=== PATIENT | female | born 1950 | race Caucasian/White ===

== ENCOUNTER 2024-08-22 23:34 | Inpatient (IN) | payer MEDICARE, SELFPAY ==
[2024-08-22 21:35] VITALS: BP 141/105; BMI 44.2
[2024-08-22 21:58] LABS: % Basophils 0.7 % (0-2); % Eosinophils 1.3 % (0-6); % Immature Granulocytes 0.4 % (0-0.5); % Lymphocytes 22.4 % (20.5-51.1); % Monocytes 8.5 % (1.7-9.3); % Neutrophils 66.7 % (42.2-75.2); Absolute Basophils 0.1 10^3/uL (0-0.2); Absolute Eosinophils 0.1 10^3/uL (0-0.7); Absolute Lymphocytes 1.7 10^3/uL (1.2-3.4); Absolute Monocytes 0.7 10^3/uL (0.1-0.6); Absolute Neutrophils 5.1 10^3/uL (1.4-6.5); Hematocrit 44.1 % (37.0-47.0); Hemoglobin 14.5 g/dL (12.0-16.0); Mean Corp Hgb Conc. 32.9 g/dL (33.0-37.0); Mean Corpuscular Hgb 30.8 pg (27.0-31.0); Mean Corpuscular Volume 93.6 fL (81.0-99.0); Mean Platelet Volume 11.1 fL (7.4-10.4); Nucleated Red Blood Cells % 0 %; Platelet Count 256 10^3/uL (130-400); Red Blood Cell Count 4.71 10^6/uL (4.20-5.40); Red Cell Dist. Width 14.6 % (11.5-14.5); White Blood Cell Count 7.7 10^3/uL (4.8-10.8)
[2024-08-22 22:00] VITALS: BP 142/103
[2024-08-22 22:12] LABS: ALT (SGPT) 27 U/L (0-35); AST (SGOT) 19 U/L (14-36); Albumin 4.4 g/dl (3.5-5.0); Alkaline Phosphatase 72 U/L (38-126); Blood Urea Nitrogen 16 mg/dl (7-17); Calcium 9.3 mg/dl (8.4-10.2); Carbon Dioxide 27 mmol/L (22-30); Chloride 105 mmol/L (98-107); Estimated Creatinine Clearance 85 ml/min; Glucose 124 mg/dl (70-99); Sodium 140 mmol/L (135-145); Total Bilirubin 1.3 mg/dl (0.2-1.3); Total Protein 6.8 g/dl (6.3-8.2); eGFR > 60.00
--- NOTE | 2024-08-22 22:17 | ED.GENMED ---
History of Present Illness
General
Chief Complaint: Cardiac Symptoms
Source: patient and physician (Urgent care physician)
Exam Limitations: none
Time Seen by Provider: 08/22/24 22:00
Nursing documentation reviewed up to this point in time: agreed with
History of Present Illness
History of Present Illness:
74-year-old female with past medical history of atrial fibrillation (not reportedly on a blood thinner), asthma, obesity who presents to the emergency department for evaluation of shortness of breath and weight gain. Patient follows with cardiology
through [place]. She says she was having shortness of breath and had a cardiac catheterization on Friday to evaluate for any blockages; she says that she was told that the cardiac catheterization was reassuring. She says that since having the
procedure however she has had increased weight gain�she says she is put on 20 pounds in the past 5 days. She has had increased swelling in the legs bilaterally. She says she is having increasing shortness of breath. She is having orthopnea. She
has a chronic cough unchanged. No fevers or chills. No chest pain. She says that tonight due to the symptoms she went to urgent care and was referred to the emergency room to be evaluated. I spoke with the urgent care physician who initially
assessed her�there she was found to be in A-fib with RVR and there was concern for CHF.
Review of Systems
Review of Systems
All Other Systems: ROS reviewed and negative except as documented in HPI and ROS
Constitutional: Reports weight gain; Denies fever or chills
Respiratory: Reports cough (Chronic unchanged) and trouble breathing
Cardiac: Denies chest pain
ABD/GI: Denies abdominal pain, nausea or vomiting
: Denies flank pain
Musculoskeletal: Reports edema; Denies neck pain or back pain
Neurological: Denies dizzy or headache
Phy Exam
Physical Exam
Physical Exam:
General: Awake, alert, oriented x3; no acute distress
Head: Normocephalic, atraumatic
Eyes: Conjunctiva normal
Throat: Airway intact, handling secretions
Neck: Trachea midline, +JVD noted
Lungs: Breath sounds diminished at the lung bases bilaterally; mild tachypnea, no hypoxia, no increased work of breathing
Heart: Tachycardia with irregularly irregular rhythm, no murmurs, gallops, or rubs appreciated
Neuro: No gross deficits
Skin: Chronic venous stasis changes in the legs
Extremities: Bilateral +3 edema in the legs; good pulses in all extremities
Scores
Heart Failure Risk
Heart Failure Risk Score: Yes
History of Stroke or TIA: No
History of intubation for respiratory distress: No
Heart rate on ED arrival >/= 110: Yes
SaO2 <90% on arrival on room air: No
HR >/=110 during 3min walk test (or too ill to perform test): Yes
ECG has acute ischemic changes: No
Urea >/=12mmol/L (BUN 33.6mg/dL): No
Serum CO2>/=35mmol/L: No
Troponin I or T elevated to MT Level (0.4mg/dL): No
NT-proBNP >/=5,000ng/L (5,000pg/ml): No
HF Risk Score: 2
Admission Status: MEDIUM RISK 9.2% Consider observation or discharge to home with homecare & f/u visit to PCP/Cutter Machine Tender, or SNF for treatment
Heart Score for Chest Pain Patients
STEMI patient?: Not applicable
Withdrawal Assessment of Alcohol
Withdrawal Assessment Completed?: Not applicable
Course
Orders/Labs/Results
Orders:
Orders
08/22/24 21:49
Electrocardiogram (*1) Urgent
Reason for Study: Chest Pain
EKG- Treatment ONCE
08/22/24 21:51
Complete Blood Count/With Diff Urgent
Comprehensive Metabolic Panel Urgent
Troponin I Urgent
08/22/24 22:16
CR Chest - 2 Views Urgent
Comment:
Reason For Exam: CHF--sob, LE swelling
08/22/24 22:17
Diltiazem HCl [Cardizem] 10 mg IV NOW STA
Furosemide [Lasix] 40 mg IV NOW STA
08/22/24 22:27
Free T4 Urgent
NT-proBNP Urgent
PTT Urgent
Prothrombin Time Urgent
TSH Reflex To Free T4 Urgent
Troponin I Urgent
08/22/24 23:27
Admit/Transfer Patient As Directed
Co-Sign Provider:
Level of Care: Inpatient admission
Assign to:: Telemetry
Physician / Group: marilyn
Diagnosis: chf exacerbation
Reason for Telemetry: Pulmonary Edema
Date to Stop Telemetry: 08/25/24
Time to Stop Telemetry: 11:00
Reason for Hospitalization: chf exacerbation
Expected length of stay greater than two midnights?: Yes
ELOS- Estimated Length of Stay in days: 2
I certify the patient meets the requirements for IP care: Yes
Code Status As Directed
Resuscitation Status: Full Code
PRN Pain Medication Management As Directed
May give lesser potent ordered pain med per pt: Yes
preference::
Protocol:: Medication orders for pain may be administered in a
manner that supports deferring to patient preference
when the pt is:
- Requesting an ordered lesser potent pain medication.
Least to most potent pain medications are defined
as: acetaminophen < NSAID < tramadol < opioids
(morphine, oxycodone, hydromorphone).
- Requesting a lesser dose of the same medication IF
ORDERED.
- Requesting a less intrusive route of administration
if both routes are prescribed by the provider (PO <
IV).
08/25/24 11:00
DC Protocol for Telemetry ONCE
Abnormal Lab Results
08/22/24 08/22/24
21:51 22:27
MCHC 32.9 L g/dL
(33.0-37.0)
RDW 14.6 H %
(11.5-14.5)
MPV 11.1 H fL
(7.4-10.4)
Absolute Monos (auto) 0.7 H 10^3/uL
(0.1-0.6)
Glucose 124 H mg/dl
(70-99)
Troponin I 0.127 H* ng/ml 0.130 H* ng/ml
TSH (Reflex) 5.13 H uIU/ml
(0.47-4.68)
08/22/24 21:51
08/22/24 21:51
Vital Signs
Initial and Last Documented VS:
Initial Vital Signs
Temp Pulse Resp BP Pulse Ox
36.6 C 113 20 141/105 95
08/22/24 21:35 08/22/24 21:35 08/22/24 21:35 08/22/24 21:35 08/22/24 21:35
Last Documented Vital Signs
Temp Pulse Resp BP Pulse Ox
36.6 C 96 20 126/87 97
08/22/24 21:35 08/23/24 00:45 08/23/24 00:45 08/23/24 00:30 08/23/24 00:45
MDM/Problems Addressed
Differential Diagnosis Includes:
CHF, pneumonia, symptomatic A-fib, PE less likely
MDM/Problems Addressed:
74-year-old female presents for evaluation of shortness of breath and weight gain, leg swelling. She arrives to us tachycardic and tachypneic, mildly hypertensive; no fever, no hypoxia. She has no increased work of breathing. Physical exam as
above�she does appear to be in congestive heart failure with marked leg edema, diminished breath sounds at the lung bases and JVD. Her EKG shows A-fib with RVR. Will plan to place an IV check labs including a CBC and a CMP, troponin, proBNP. Will
check chest x-ray. Will monitor closely reassess after the above. Anticipate admission.
Labs reviewed: CBC unremarkable, CMP no clinically significant abnormalities. Her troponin is elevated at 0.13 likely in the setting of demand with A-fib with RVR and congestive heart failure. Her proBNP is markedly elevated at 9000. Chest x-ray
shows cardiomegaly with prominent pulmonary vasculature and bilateral pleural effusions consistent with CHF. Given diltiazem for rate control, IV Lasix. Case discussed with hospitalist for admission.
Chronic conditions affecting care:
Obesity, A-fib
*Radiology
Radiology exam reviewed: preliminary read by ED provider and radiology read reviewed
*Pulse Oximetry
Patient hypoxic: no
*EKG
Interpreted by ED Provider?: Yes
Heart Rate: 115
Rate: tachycardiac
Rhythm: a-fib
Maurice: left axis deviation
Interval: normal interval
QRS Pattern: left vent hypertrophy
Ischemia: non-specific ST changes
*Critical Care Note
Total Time (30-74mins, 75-104mins- exclusive of procedures): Not Applicable
Data Reviewed
Source: patient, family and physician (Urgent care physician)
Patient Management
Discussion with other providers: Hospitalist (Discussed with hospitalist)
Escalation/DeEscalation of care consider admission/obs:
Admission indicated
ED Attending Note
-
Portions of this chart may have been created with voice recognition software.� Occasional wrong word or��sound alike� substitutions may have occurred due to the inherent limitations of voice recognition software.
Discharge Plan
Departure
Patient Disposition: Admit
Date of Disposition: 08/22/24
Time of Disposition: 23:12
Admit to doctor: Jose
Presentation/result/management discussed w/ accepting MD/DO: Hospitalist
Discharge Problem:
Atrial fibrillation with RVR, CHF (congestive heart failure)
Interventions
Interventions:
*Risk Screen - Suicide Last Done: 08/22/24 21:35
*General Assessment Last Done: 08/22/24 21:35
*Neglect/Abuse Screening Last Done: 08/22/24 21:35
*ED- Fall Risk Assessment Last Done: 08/22/24 21:35
ED- Pulmonary Assessment Last Done: 08/22/24 22:07
ED- Cardiac Assessment Last Done: 08/22/24 21:35
[2024-08-22] MEDS: CARDIZEM 10 MG IV (22:25)
[2024-08-22] MEDS: LASIX 40 MG IV (22:26)
[2024-08-22 22:28] LABS: Troponin I 0.127 ng/ml
[2024-08-22 22:34] VITALS: BP 123/107
[2024-08-22 22:46] VITALS: BP 116/86
[2024-08-22 22:51] LABS: INR 1.07; PT 14.2 Sec (11.4-14.6)
[2024-08-22 22:52] LABS: APTT 26.6 Sec (23.4-35.0)
[2024-08-22 23:08] LABS: NT-proBNP 9060 pg/ml
[2024-08-22 23:30] VITALS: BP 117/81
[2024-08-22 23:34] VITALS: BMI 44.2
[2024-08-22 23:34] LABS: TSH Reflex To Free T4 5.13 uIU/ml (0.47-4.68)
--- NOTE | 2024-08-22 23:34 | HPS.HSE ---
Family Physician
-
Family Physician: Gonzales Romo MD
Chief Complaint
-
shortness of breath
History of Present Illness
74-year-old female past medical history of atrial fibrillation, asthma, obesity, gout, chronic lymphedema presenting for shortness of breath and weight gain. Patient follows cardiology at [place]. She sees Dr. Coles.
She has had cardiac catheterization 5 days ago to evaluate her chronic lower extremity edema and to evaluate for 'skipped heart beat'. She did not have any CAD on catheterization but afterwards he developed increasing shortness of breath, 20 pound
weight gain and increased swelling in the legs bilaterally. Has chronic cough that is unchanged. No fevers or chills. No chest pain. She went to urgent care was told to come to emergency room. She was noted to be in A-fib with RVR there.
She recently had an echocardiogram in April that showed ejection fraction of 35%.
She denies smoking or alcohol use.
Medical History
Past Medical History
Past Medical History: Reports Other (atrial fibrillation, asthma, obesity, gout, chronic lymphedema)
Past Surgical History: Reports None
Social History
Tobacco: Non-smoker
Alcohol: None
Drug: None
Family History
Family History: Not pertinent
Allergies / Home Medications
Allergies reflects when Allergies were last updated in [employer].
Home Medications with original date entered in [employer]
Allergy/Medication List:
Allergies
Allergy/AdvReac Type Severity Reaction Status Date / Time
adhesive Allergy Rash Verified 08/22/24 21:48
levofloxacin (From Levaquin) Allergy Unknown Verified 08/22/24 22:35
pantoprazole Allergy Unknown Verified 08/22/24 22:35
pentazocine (From Talwin) Allergy Vomiting Verified 08/22/24 21:48
shark liver oil Allergy Anaphylaxis Verified 08/22/24 22:37
Home Medications
colchicine 0.6 mg tablet 0.6 mg PO DAILY 08/22/24
febuxostat 40 mg tablet 40 mg PO DAILY 08/22/24
Review of Systems
-
History Source: Patient
A 12 point ROS was completed and negative except as noted: Yes
Constitutional: Reports No Symptoms
EENT: Reports No Symptoms
Respiratory: Reports See HPI
Cardiac: Reports See HPI
Abdomen/GI: Reports No Symptoms
: Reports No Symptoms
Musculoskeletal: Reports No Symptoms
Skin: Reports No Symptoms
Neurological: Reports No Symptoms
Endocrine: Reports No Symptoms
Hematologic/Lymphatic: Reports No Symptoms
Psych: Reports No Symptoms
Physical Exam
Vital Signs
Vital Signs
Temp Pulse Resp BP Pulse Ox
97.8 F 78 16 123/107 98
08/22/24 21:35 08/22/24 23:00 08/22/24 23:00 08/22/24 22:34 08/22/24 23:00
Physical Exam
General: Well Developed, Well Nourished and No Apparent Distress
HEENT: NormoCephalic, Moist mucous membranes and Atraumatic
Respiratory: Clear
Cardiac: S1/S2, Regular Rhythm and Peripheral Edema; No Murmur or Rub
GI: Soft, Non Tender, Non Distended and Normal Bowel Sounds; No Organomegaly
Rectal: Deferred by Provider
Musculoskeletal: No Clubbing, No Cyanosis and No Edema
Skin: No Rash
Neuro: Nonfocal/grossly intact
Laboratory Results
-
08/22/24 21:51
08/22/24 21:51
Laboratory Results
PT 14.2 Sec (11.4-14.6) 08/22/24 22:27
INR 1.07 08/22/24 22:27
APTT 26.6 Sec (23.4-35.0) 08/22/24 22:27
Total Bilirubin 1.3 mg/dl (0.2-1.3) 08/22/24 21:51
AST 19 U/L (14-36) 08/22/24 21:51
ALT 27 U/L (0-35) 08/22/24 21:51
Alkaline Phosphatase 72 U/L (38-126) 08/22/24 21:51
Troponin I 0.130 ng/ml H* 08/22/24 22:27
Data Reviewed
-
Lab Data: Labs Reviewed by me
Old Records: Reviewed
Impression/Plan
-
IMPRESSION:
PLAN:
# Acute HFrEF exacerbation
- Cardiac BNP of 9000
-Chest x-ray shows borderline cardiomegaly, pulmonary vascularity, tiny bilateral pleural effusions
- Check I's and O's, daily weights
-Recent echo reportedly showed EF of 35%
- 40 IV Lasix daily
-Obtain records from [place] cardiology Dr. Coles
- Cardiology consulted
# Atrial fibrillation with RVR
- Cardizem bolus given now with heart rate 90s
- Check TSH
# Nonischemic myocardial injury secondary to A-fib and CHF
-No chest pain
- EKG shows atrial fibrillation with RVR with heart rate 115
- Troponin of 0.127
- Trend troponins
Childhood asthma
Obesity
Gout
- Continue colchicine, febuxostat
Chronic lymphedema
Full code
DVT prophylaxis�heparin
Cardiac diet
[2024-08-23] VITALS (21 sets, daily range): BP systolic 103–163; BP diastolic 67–104; BMI 42.2
[2024-08-23 00:10] LABS: Free T4 1.39 ng/dl (0.78-2.19)
[2024-08-23 02:10] LABS: Troponin I 0.113 ng/ml
[2024-08-23] MEDS: FLUSH (NSS) 1 FLUSH IV (02:38)
[2024-08-23 05:41] LABS: % Basophils 0.9 % (0-2); % Eosinophils 2.7 % (0-6); % Immature Granulocytes 0.3 % (0-0.5); % Lymphocytes 28.1 % (20.5-51.1); % Monocytes 11.4 % (1.7-9.3); % Neutrophils 56.6 % (42.2-75.2); Absolute Basophils 0.1 10^3/uL (0-0.2); Absolute Eosinophils 0.2 10^3/uL (0-0.7); Absolute Monocytes 0.8 10^3/uL (0.1-0.6); Hematocrit 39.6 % (37.0-47.0); Mean Corp Hgb Conc. 32.8 g/dL (33.0-37.0); Mean Corpuscular Hgb 30.7 pg (27.0-31.0); Mean Corpuscular Volume 93.6 fL (81.0-99.0); Mean Platelet Volume 10.4 fL (7.4-10.4); Nucleated Red Blood Cells % 0 %; Platelet Count 234 10^3/uL (130-400); Red Blood Cell Count 4.23 10^6/uL (4.20-5.40); Red Cell Dist. Width 14.5 % (11.5-14.5)
[2024-08-23 06:06] LABS: Blood Urea Nitrogen 15 mg/dl (7-17); Calcium 8.6 mg/dl (8.4-10.2); Carbon Dioxide 29 mmol/L (22-30); Chloride 105 mmol/L (98-107); Estimated Creatinine Clearance 75 ml/min; Glucose 121 mg/dl (70-99); Sodium 139 mmol/L (135-145); eGFR > 60.00
[2024-08-23 08:38] LABS: Troponin I 0.115 ng/ml
[2024-08-23] MEDS: LASIX 40 MG IV (09:40)
[2024-08-23] MEDS: COLCHICINE 0.6 MG PO (09:41)
--- NOTE | 2024-08-23 10:22 | CON.CAR ---
Addendum entered and electronically signed by Antonio Manning MD 08/23/24 13:34:
I saw and examined the patient.
The [employer] SAL[employer]IST's note was reviewed and I agree with the note.
Comment: 74-year-old patient with history of dilated cardiomyopathy with a EF of 30 to 35% on echo from March 2024, PAF, and lymphedema who usually follows with Dr. Coles at [facility]. She had a cardiac catheterization last
week that showed severely elevated filling pressures and non-obstructive CAD.'
Patient is concerned about medications and potential unwanted side effects; she is very sensitive to meds.
- IV diuresis
- start GDMT Entresto coreg
- pricing of DOAC
- echo
Original Note:
Consultation
Consultation Request
Date/Time Consultation Requested: 08/23/2024 0900
Date/Time Consultation Performed: 08/23/2024 0930
Requesting Provider: DR. Rubio
Performing Provider: Dr. Manning
Reason for Consultation: HFrEF, AF RVR
Medical History
-
Chief Complaint: SOB, weight gain, edema
History of Present Illness:
74-year-old patient with history of dilated cardiomyopathy with a EF of 30 to 35% on echo from March 2024, PAF, and lymphedema who usually follows with Dr. Coles at [facility]. She had a cardiac catheterization last week.
Results with nonobstructive disease. She states she has follow-up with Dr. Coles later this week. She states since that time she has had increased shortness of breath, lower extremity edema and weight gain. She believes that from her weight at
[facility] last week to wait now she is up approximately 20 pounds. She does not take diuretics at home. She states she only takes medications for her gout at home. Pt came to because she is considering changing cardiology care to here.
Past Medical History
Past Medical History: Arrhythmias (PAF), CAD (Nonobstructive disease), CHF (Heart failure reduced ejection fraction), Hypercholesterolemia and Other (gout, lymphedema)
Past Surgical History: None
Social History
Tobacco: Non-Smoker
Alcohol: Occasional
Living: Alone
Family History
Family History: Reviewed & Not Pertinent
Allergies / Home Medications
Allergy/AdvReac Type Severity Reaction Status Date / Time
adhesive Allergy Rash Verified 08/23/24 00:39
levofloxacin (From Levaquin) Allergy Unknown Verified 08/23/24 00:39
pantoprazole Allergy Unknown Verified 08/23/24 00:39
pentazocine (From Talwin) Allergy Vomiting Verified 08/23/24 00:39
shark liver oil Allergy Anaphylaxis Verified 08/23/24 00:39
�Medication �Instructions �Recorded �Confirmed �Type
colchicine 0.6 mg tablet 0.6 mg PO DAILY 08/22/24 08/22/24 History
febuxostat 40 mg tablet 40 mg PO DAILY 08/22/24 08/22/24 History
Review of Systems
-
History Source: Patient
Constitutional: Weight Gain
EENT: No Symptoms
Respiratory: Trouble Breathing
Cardiac: No Symptoms
Abdomen/GI: No Symptoms
: No Symptoms
Musculoskeletal: Edema (Increased bilateral lower extremity)
Neurological: No Symptoms
Endocrine: No Symptoms
Hematologic/Lymphatic: No Symptoms
Physical Exam
Vital Signs
Temp Pulse Resp BP Pulse Ox
97.7 F 78 18 163/92 95
08/23/24 08:22 08/23/24 08:22 08/23/24 08:22 08/23/24 08:22 08/23/24 08:22
Lab Results
08/23/24 05:29
08/23/24 05:29
Troponin I 0.115 ng/ml H* 08/23/24 08:00
Eoj-L-Zbyhsaozecy Pept 9060 pg/ml 08/22/24 22:27
Physical Exam
General: Well Developed, Well Nourished and No Apparent Distress
HEENT: Normocephalic and Moist Mucous Membranes
Respiratory: Clear (Decreased bases)
Cardiac: S1/S2, Irregular Rhythm and Peripheral Edema (Moderate to severe bilateral lower extremity edema)
Breast: Deferred by me
GI: Soft, Non Tender and Normal Bowel Sounds
Musculoskeletal: Edema (Moderate to severe bilateral lower extremity edema)
Skin: Other (R radial no hematoma, there is a palpable R radial pulse. )
Psych: Calm
Impression / Plan
-
Acute on chronic HFrEF:
-[facility] last week at [place]- non obstructive CAD.
-since procedure weight gain possible 20 pounds, increased SOB, and LE edema
-not on diuretics at home, not following fluid or sodium restrictions
-IV lasix here with some improvement. Con't to require IV lasix and monitoring.
-Reviewed GDMT and pt states she would like as little medication as possible.
-Reviewed need to fluid and sodium restrictions.
-echo from Dr. Coles/[facility]: 04/21/24 EF 30-35 with global hypokinesis ( seen brief on pt portal, reports requested).
-in past did not tolerate jardiance- felt poor on it, metoprolol had nausea and headache.
PAF:
-unknown duration.
-Pt denies history. Some mention of it in her pt portal.
-No mention of anticoagulation.
-CHADSVASC 4 (female,age,CHF, HTN- BP's elevated here). Denies any bleeding history.
-rates elevated prefer retrial of bblocker with HFrEF
-case management to check pricing of eliquis.
HTN:
-denies history.
-BP elevated at times here
- plan GDMT for HF and reassess BP
Non obstructive CAD:
- D1 20-30% stenosis on [facility] last week 08/17/24
- statin indicated but pt states her cholesterol level is normal and prefers natural treatments.
-troponin mildly abnormal . Peak 0.130, in setting of acute HFrEF and AF RVR. recent [facility] no obstructive CAD.
Chronic lymphedema:
- uses velcro wrap at home.
Data Reviewed
-
EKG: Tracing Personally Visualized and interpreted (Atrial fibrillation with RVR 115 bpm with LVH and nonspecific ST abnormality.)
Radiology: Report Reviewed by me (Chest x-ray 08/22/2024 borderline cardiomegaly with pulmonary vascularity tiny bilateral pleural effusions)
Medical Tests (Nuc Med, Echo etc): Report Reviewed by me ([facility]: 08/17/24 Radha: ANABELL patent. LAD: mild diffuse dz, D1: 20-30% focal ostial,D2 mild diffuse dz,LCX : mild luminal irreg, RCA: mild diffuse dz. Co 3.32L/min, CI 1.65L/min)
Labs: Labs Reviewed by me, Discussed with Physician and Discussed with Patient
Old Records: Requested (Records were requested from Dr. Coles's office as well as [facility]/ [facility])
--- NOTE | 2024-08-23 11:19 | W.PN.HOSP.TC ---
Today's Communication/Plan
-
see outlined plan
Assessment / Plan
Assessment / Plan
Assessment:
Acute on chronic HFrEF exacerbation
- BNP 9000
- CXR: Borderline cardiomegaly and pulmonary vascularity at least top normal.
- continue IV Lasix - requires intensive monitoring of I/Os, weights, lytes
- salt and fluid restrictions
- CHF education
- Recent echo reportedly showed EF 30-35% with global hypokinesis. Recent cath with mild nonobstructive CAD. Records pending from [facility] Dr. Coles
- CBC cards consulted
Atrial fibrillation with RVR
- s/p Cardizem
- continue Coreg
- CHADSVASC 4 (female,age,CHF, HTN- BP's elevated here). Denies any bleeding history. CM to cost [facility] Eliquis
Essential HTN
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
mild nonobstructive CAD
- No chest pain
- trop peaked .130
- continue Statin
Childhood asthma
Obesity
Gout
- continue colchicine, febuxostat
Chronic lymphedema
DVT prophylaxis : SC Heparin
Code: Full
Anticipated Discharge: > 48 hours
Subjective/Interval History
-
Date of Service: August 23, 2024
denies significant SOB or chest pain
no palpitations
Objective Data
-
Labs:
Laboratory Results
08/23/24
05:29
WBC 7.0
Hgb 13.0
Hct 39.6
Plt Count 234
Sodium 139
Potassium
Chloride 105
Carbon Dioxide 29
BUN 15
Creatinine 0.8
Glucose 121 H
Calcium 8.6
Total Bilirubin Cancelled
AST Cancelled
ALT Cancelled
Alkaline Phosphatase Cancelled
Vital Signs:
Vital Signs
Temp Pulse Resp BP Pulse Ox
97.7 F 78 18 163/92 95
08/23/24 08:22 08/23/24 08:22 08/23/24 08:22 08/23/24 08:22 08/23/24 08:22
Physical Exam
-
General: No Apparent Distress
HEENT: Normocephalic and Atraumatic
Respiratory: Crackles and Decreased Breath Sounds
Cardiac: Irregular Rhythm
GI: Soft and Nontender
Musculoskeletal: Edema, Right Lower Extrem and Edema, Left Lower Extrem
Neuro: AO x 3
Hematologic / Lymphatic: No Lymphadenopathy
Psych: Calm
Data Reviewed
-
Total Time Spent with Patient (in minutes): 51
Labs: Labs Reviewed by me
[2024-08-23] MEDS: COREG 3.125 MG PO ×2 (12:49→21:52)
[2024-08-23 13:59] LABS: Troponin I 0.092 ng/ml
[2024-08-23] MEDS: ULORIC PO (14:05)
--- NOTE | 2024-08-23 16:35 | CM ---
Alert awake oriented patient who lives with her Turner who lives in a one story home with 1 steps to enter.She is independent in driving and in all activities of daily living.Offered VN she declined.
No adaptive devices
Never had VN/SNF
Pharmacy [facility]
PCP Dr Romo
PLAN Home no needs
[2024-08-23 21:22] LABS: Troponin I 0.087 ng/ml
[2024-08-24 03:40] VITALS: BP 132/90
[2024-08-24 06:00] VITALS: BMI 42.0
[2024-08-24 07:35] VITALS: BP 112/63
[2024-08-24 07:43] LABS: Hematocrit 37.6 % (37.0-47.0); Hemoglobin 12.3 g/dL (12.0-16.0); Mean Corp Hgb Conc. 32.7 g/dL (33.0-37.0); Mean Corpuscular Hgb 30.9 pg (27.0-31.0); Mean Corpuscular Volume 94.5 fL (81.0-99.0); Mean Platelet Volume 10.8 fL (7.4-10.4); Platelet Count 225 10^3/uL (130-400); Red Blood Cell Count 3.98 10^6/uL (4.20-5.40); Red Cell Dist. Width 14.3 % (11.5-14.5); White Blood Cell Count 6.1 10^3/uL (4.8-10.8)
[2024-08-24 09:08] LABS: Blood Urea Nitrogen 18 mg/dl (7-17); Calcium 8.7 mg/dl (8.4-10.2); Carbon Dioxide 30 mmol/L (22-30); Chloride 103 mmol/L (98-107); Estimated Creatinine Clearance 64 ml/min; Glucose 110 mg/dl (70-99); Potassium 4.4 mmol/L (3.5-5.1); Sodium 139 mmol/L (135-145); eGFR > 60.00
--- NOTE | 2024-08-24 09:31 | W.PN.HOSP.TC ---
Today's Communication/Plan
-
continue IV Lasix
GMDT per Cardiology
Assessment / Plan
Assessment / Plan
Echo: Mildly dilated LV with severely reduced systolic function.
LVEF is 25-30% by visual estimation. Global diffuse hypokinesis.
Normal-appearing RV size with reduced systolic function.
No significant valvular disease.
Estimated pulmonary artery pressure of 29 mmHg assuming a right atrial pressure
of 3 mmHg.
No prior study available for comparison.
Assessment:
Acute on chronic HFrEF exacerbation
- BNP 9000
- CXR: Borderline cardiomegaly and pulmonary vascularity at least top normal.
- continue IV Lasix - requires intensive monitoring of I/Os, weights, lytes
- GDMT: ARB, BB. CM to [facility]
- salt and fluid restrictions
- CHF education
- Recent echo reportedly showed EF 30-35% with global hypokinesis. Recent cath with mild nonobstructive CAD. Records pending from [facility]iology Dr. Coles
- repeat Echo as above
- CBC cards following
- apply compression therapy - patient has own
Atrial fibrillation with RVR
- s/p Cardizem
- continue Coreg
- CHADSVASC 4 (female,age,CHF, HTN- BP's elevated here). Denies any bleeding history. CM to [employer]
Essential HTN
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
mild nonobstructive CAD
- No chest pain
- trop peaked .130
- continue Statin
Childhood asthma
Obesity
Gout
- continue colchicine, febuxostat
Chronic lymphedema
DVT prophylaxis: SC Heparin
Code: Full
Anticipated Discharge: > 48 hours
Subjective/Interval History
-
Date of Service: August 24, 2024
reports some lightheadedness and nausea for 3 hours after Coreg
denies any other complaints
weight down 5-7 lbs if scales accurate
Objective Data
-
Labs:
Laboratory Results
08/24/24
06:31
WBC 6.1
Hgb 12.3
Hct 37.6
Plt Count 225
Sodium 139
Potassium 4.4
Chloride 103
Carbon Dioxide 30
BUN 18 H
Creatinine 0.9
Glucose 110 H
Calcium 8.7
Vital Signs:
Vital Signs
Temp Pulse Resp BP Pulse Ox
98.7 F 86 18 112/63 96
08/24/24 07:35 08/24/24 07:35 08/24/24 07:35 08/24/24 07:35 08/24/24 07:35
I&O
08/23/24 08/24/24 08/25/24
06:59 06:59 06:59
Intake Total 960 / 960
Balance 960 / 960
Physical Exam
-
General: No Apparent Distress
HEENT: Normocephalic and Atraumatic
Respiratory: Negative Wheezes
Cardiac: S1/S2 and Irregular Rhythm
GI: Soft
Musculoskeletal: Edema, Right Lower Extrem and Edema, Left Lower Extrem
Neuro: AO x 3
Psych: Calm
Data Reviewed
-
Total Time Spent with Patient (in minutes): 51
Labs: Labs Reviewed by me
--- NOTE | 2024-08-24 10:07 | CM ---
notified med prices Eliquis $12.15, Xarelto $12.15, Dabigatran $4.90, Entresto $12.15.
Cardiology involved .
IV LAsix continues.
Fluid restriction maintained.
Offered V pt declined VN .
PLAN Home no needs
[2024-08-24] MEDS: DIOVAN PO (10:27)
[2024-08-24] MEDS: COLCHICINE 0.6 MG PO (10:30)
[2024-08-24] MEDS: COREG 3.125 MG PO ×2 (10:30→20:53)
[2024-08-24] MEDS: ULORIC 40 MG PO (10:30)
[2024-08-24] MEDS: LASIX 40 MG IV ×2 (10:30→18:12)
--- NOTE | 2024-08-24 10:39 | W.PN.CD ---
Today's Communication / Plan
-
IV diuresis
Slowly add meds for HFrEF and AFib
Patient education
More than 50 minutes spent caring for pt today
Impression / Plan
-
Acute on chronic HFrEF, LVEF here by echo 25-30%, goal weight not determined
Nonischemic dilated cardiomyopathy
Afib, persistent, duration unknown, rates still too fast
HTN suspected, not on meds for HTN
Non-obstructive CAD, max lesion at cath last week was a 20-30% D2
Chronic lymphedema (many years)=> but she has much more edema than is baseline
Med cost: Low cost per case management
Medication intolerance => I encourage her to stick with meds
Subjective: No CP or palpls
Physical Exam
Vital Signs/Labs
Vital Signs
Temp Pulse Resp BP Pulse Ox
98.7 F 86 18 112/63 96
08/24/24 07:35 08/24/24 07:35 08/24/24 07:35 08/24/24 07:35 08/24/24 07:35
08/23/24 08/24/24 08/25/24
06:59 06:59 06:59
Actual Weight 113.1 kg 107.592 kg
08/24/24 06:31
08/24/24 06:31
PT 14.2 Sec (11.4-14.6) 08/22/24 22:27
INR 1.07 08/22/24 22:27
APTT 26.6 Sec (23.4-35.0) 08/22/24 22:27
Magnesium 2.0 mg/dl (1.6-2.3) 08/24/24 06:31
Free T4 1.39 ng/dl (0.78-2.19) 08/22/24 22:27
08/22/24
22:27
Hch-S-Rbjimreiolo Pept 9060
LAB Results
08/22/24 08/22/24 08/23/24
21:51 22:27 01:33
Troponin I 0.127 H* 0.130 H* 0.113 H*
08/23/24 08/23/24 08/23/24
08:00 13:14 20:48
Troponin I 0.115 H* 0.092 H* 0.087 H*
Physical Exam
Constitutional: No acute distress
Cardiovascular: Rhythm/rate is irregular, Pedal edema present (3+ to knees) and S1S2 is normal
Respiratory: Respiratory effort normal and Lungs clear to auscul.
GI: Soft and Distention absent
Neuro/Psych: AO x 3
Data Reviewed
-
Date of Service: August 24, 2024
[2024-08-24 11:12] VITALS: BP 124/93
[2024-08-24 15:20] VITALS: BP 131/74
[2024-08-24 19:17] VITALS: BP 125/77
[2024-08-24] MEDS: ELIQUIS PO ×2 (20:53→20:55)
[2024-08-24 23:33] VITALS: BP 123/71
[2024-08-25 03:33] VITALS: BP 121/90
[2024-08-25 06:00] VITALS: BMI 41.9
[2024-08-25 06:32] LABS: Hematocrit 39.9 % (37.0-47.0); Hemoglobin 13.1 g/dL (12.0-16.0); Mean Corp Hgb Conc. 32.8 g/dL (33.0-37.0); Mean Corpuscular Volume 91.3 fL (81.0-99.0); Mean Platelet Volume 10.4 fL (7.4-10.4); Platelet Count 233 10^3/uL (130-400); Red Blood Cell Count 4.37 10^6/uL (4.20-5.40); White Blood Cell Count 6.9 10^3/uL (4.8-10.8)
[2024-08-25 07:00] LABS: Blood Urea Nitrogen 20 mg/dl (7-17); Carbon Dioxide 30 mmol/L (22-30); Chloride 101 mmol/L (98-107); Estimated Creatinine Clearance 64 ml/min; Glucose 126 mg/dl (70-99); Sodium 138 mmol/L (135-145); eGFR > 60.00
[2024-08-25 08:39] VITALS: BP 125/81
[2024-08-25] MEDS: LASIX 40 MG IV ×2 (09:11→16:34)
[2024-08-25] MEDS: ELIQUIS 5 MG PO ×2 (09:15→19:59)
[2024-08-25] MEDS: COLCHICINE PO (09:16)
[2024-08-25] MEDS: ULORIC PO (09:16)
[2024-08-25] MEDS: COREG PO (09:16)
--- NOTE | 2024-08-25 09:46 | W.PN.HOSP.TC ---
Today's Communication/Plan
-
continue IV Lasix now BID
GDMT: Coreg/ARB. patient requests ARB spaced out from Coreg to tease out any side effects given her history of side effects with BB and BP meds
Assessment / Plan
Assessment / Plan
Echo: Mildly dilated LV with severely reduced systolic function.
LVEF is 25-30% by visual estimation. Global diffuse hypokinesis.
Normal-appearing RV size with reduced systolic function.
No significant valvular disease.
Estimated pulmonary artery pressure of 29 mmHg assuming a right atrial pressure
of 3 mmHg.
No prior study available for comparison.
Assessment:
Acute on chronic HFrEF exacerbation
- BNP 9000
- CXR: Borderline cardiomegaly and pulmonary vascularity at least top normal.
- continue IV Lasix - requires intensive monitoring of I/Os, weights, lytes
- GDMT: ARB, BB. CM to [employer]
- salt and fluid restrictions
- CHF education
- Recent echo reportedly showed EF 30-35% with global hypokinesis. Recent cath with mild nonobstructive CAD. Records pending from OP Cardiology Dr. Coles
- repeat Echo as above
- CBC cards following
- apply compression therapy - patient has own
Atrial fibrillation with RVR
- s/p Cardizem
- continue Coreg
- CHADSVASC 4 (female,age,CHF, HTN- BP's elevated here). Denies any bleeding history. CM to [facility].by Eliquis
Essential HTN
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
mild nonobstructive CAD
- No chest pain
- trop peaked .130
- continue Statin
Childhood asthma
Obesity
Gout
- continue colchicine, febuxostat
Chronic lymphedema
DVT ppx: SC Heparin
Code: Full
Anticipated Discharge: > 48 hours
Subjective/Interval History
-
Date of Service: August 25, 2024
weight down 0.5 kg per scale
Objective Data
-
Labs:
Laboratory Results
08/25/24
06:13
WBC 6.9
Hgb 13.1
Hct 39.9
Plt Count 233
Sodium 138
Potassium 4.0
Chloride 101
Carbon Dioxide 30
BUN 20 H
Creatinine 0.9
Glucose 126 H
Calcium 9.0
Vital Signs:
Vital Signs
Temp Pulse Resp BP Pulse Ox
98 F 90 18 125/80 98
08/25/24 08:39 08/25/24 09:15 08/25/24 08:39 08/25/24 09:15 08/25/24 08:39
I&O
08/24/24 08/25/24 08/26/24
06:59 06:59 06:59
Intake Total 960 / 960 1200 / 1200
Balance 960 / 960 1200 / 1200
Physical Exam
-
General: No Apparent Distress
HEENT: Normocephalic and Atraumatic
Respiratory: Negative Wheezes
Cardiac: Regular Rhythm and S1/S2
GI: Soft
Musculoskeletal: Edema, Right Lower Extrem and Edema, Left Lower Extrem
Neuro: AO x 3
Psych: Calm
Data Reviewed
-
Total Time Spent with Patient (in minutes): 51
Labs: Labs Reviewed by me
[2024-08-25] MEDS: DIOVAN 80 MG PO (10:55)
--- NOTE | 2024-08-25 11:11 | W.PN.CD ---
Today's Communication / Plan
-
IV diuresis
May need Zaroxolyn tomorrow.
Slowly add GDMT
Impression / Plan
-
Acute on chronic HFrEF, LVEF here by echo 25-30%, goal weight not determined
- I reviewed GDMT: loop diuretic, BB, MRA, SGLT2-I, RAAS-I
- Admit weight 113 kg
- Today 08/25/2024: 107.2 kg but not much different than 08/24/2024
- If does not lose enough weight in next 24 hours will likely add Zaroxolyn for several days
Nonischemic dilated cardiomyopathy
NSVT, multiple episodes, longest 16 beats, monomorphic
- Med rx for HFrEF
- If EF stays low => will offer primary prevention ICD
Afib, persistent, duration unknown, rates still too fast
- Need a bit more rate control
- I reviewed the importance of OAT for stroke prevention
- Given HF will pursue rhythm control IF SHE demonstrates adherence to therapy and followup
HTN suspected, not on meds for HTN
Non-obstructive CAD, max lesion at cath last week was a 20-30% D2
Chronic lymphedema (many years)=> but she has much more edema than is baseline
Med cost: Low cost per case management
Medication intolerance => I encourage her to stick with meds
Subjective: No CP or palpls
Physical Exam
Vital Signs/Labs
Vital Signs
Temp Pulse Resp BP Pulse Ox
98 F 90 18 125/80 98
08/25/24 08:39 08/25/24 10:55 08/25/24 08:39 08/25/24 10:55 08/25/24 08:39
08/24/24 08/25/24 08/26/24
06:59 06:59 06:59
Actual Weight 107.592 kg 107.229 kg
08/25/24 06:13
08/25/24 06:13
PT 14.2 Sec (11.4-14.6) 08/22/24 22:27
INR 1.07 08/22/24 22:27
APTT 26.6 Sec (23.4-35.0) 08/22/24 22:27
Magnesium 2.0 mg/dl (1.6-2.3) 08/25/24 06:13
Free T4 1.39 ng/dl (0.78-2.19) 08/22/24 22:27
08/22/24
22:27
Srz-Y-Uyfcgsnnrgw Pept 9060
LAB Results
08/22/24 08/22/24 08/23/24
21:51 22:27 01:33
Troponin I 0.127 H* 0.130 H* 0.113 H*
08/23/24 08/23/24 08/23/24
08:00 13:14 20:48
Troponin I 0.115 H* 0.092 H* 0.087 H*
Physical Exam
Constitutional: No acute distress
Cardiovascular: Rhythm/rate is irregular and Pedal edema present (still 3+)
Respiratory: Respiratory effort normal and Lungs clear to auscul.
GI: Soft and Distention absent
Data Reviewed
-
Date of Service: August 25, 2024
[2024-08-25 11:36] VITALS: BP 103/57
[2024-08-25] MEDS: COREG 3.125 MG PO ×2 (12:07→20:45)
[2024-08-25] MEDS: COLCHICINE 0.6 MG PO (14:13)
[2024-08-25] MEDS: ULORIC 40 MG PO (14:14)
[2024-08-25 17:25] VITALS: BP 104/66
[2024-08-25 19:44] VITALS: BP 121/65
[2024-08-25 23:39] VITALS: BP 108/74
[2024-08-26 03:51] VITALS: BP 122/79
[2024-08-26 05:38] VITALS: BMI 41.2
[2024-08-26 06:22] LABS: Hematocrit 38.3 % (37.0-47.0); Hemoglobin 12.8 g/dL (12.0-16.0); Mean Corp Hgb Conc. 33.4 g/dL (33.0-37.0); Mean Corpuscular Hgb 30.4 pg (27.0-31.0); Mean Platelet Volume 10.4 fL (7.4-10.4); Platelet Count 225 10^3/uL (130-400); Red Blood Cell Count 4.21 10^6/uL (4.20-5.40); White Blood Cell Count 6.3 10^3/uL (4.8-10.8)
[2024-08-26 06:41] LABS: Blood Urea Nitrogen 20 mg/dl (7-17); Calcium 8.8 mg/dl (8.4-10.2); Carbon Dioxide 31 mmol/L (22-30); Chloride 101 mmol/L (98-107); Estimated Creatinine Clearance 57 ml/min; Glucose 121 mg/dl (70-99); Magnesium 2.2 mg/dl (1.6-2.3); Sodium 139 mmol/L (135-145); eGFR 59.12
[2024-08-26 08:01] VITALS: BP 134/80
--- NOTE | 2024-08-26 09:54 | W.PN.CD ---
Today's Communication / Plan
-
Respiratory status appears stable. Patient's weight is down another 2 kg compared to yesterday. Still with bilateral lower extremity edema. She has a component of chronic lymphedema.
Patient states that she is going home today. I will suggest that she still gets additional IV diuretic and optimization of medical therapy while she is here. We did review medications and and I discussed the importance of medications including
anticoagulation. As listed below we will be sure that she is going to be compliant with medical therapy prior to going with rhythm control strategy.
If patient is insistent on going home then will need to pick a diuretic dose would recommend Lasix 40 mg a day. This is in addition to current dosing of valsartan carvedilol and apixaban and Farxiga. Not using spironolactone until we are clear
that on patient's follow-up and compliance.
Patient will labs/renal profile once a week for the next 2 weeks at the time of discharge
Impression / Plan
-
Acute on chronic HFrEF, LVEF here by echo 25-30%, goal weight not determined
- I reviewed GDMT: loop diuretic, BB, MRA, SGLT2-I, RAAS-I
- Admit weight 113 kg now down to 105
- On yesterday's evaluation there was consideration of using metolazone if patient did not diurese but now appears to be another 2 kg down.
- Patient still with significant edema. She has a component of chronic edema/lymphedema but would continue with IV diuretic.
Nonischemic dilated cardiomyopathy. Continue to optimize GDMT
NSVT, multiple episodes, longest 16 beats, monomorphic. Ventricular triplets over the last 24 hours no longer runs
- Med rx for HFrEF
- If EF stays low => will offer primary prevention ICD. Reassess meant of EF in 3 months
Afib, persistent, duration unknown,
- Heart rate approximately 100 may benefit from some additional rate control provided BP will allow.
- I reviewed the importance of OAT for stroke prevention
- Given HF will pursue rhythm control IF SHE demonstrates adherence to therapy and followup
HTN suspected, not on meds for HTN
Non-obstructive CAD, max lesion at cath last week was a 20-30% D2
Chronic lymphedema (many years)=> but she has much more edema than is baseline
Med cost: Low cost per case management
Medication intolerance => I encourage her to stick with meds
Subjective: No CP or shortness of breath.'s patient states that she is going home today
Physical Exam
Vital Signs/Labs
Vital Signs
Temp Pulse Resp BP Pulse Ox
98.2 F 71 18 134/80 94
08/26/24 08:01 08/26/24 08:01 08/26/24 08:01 08/26/24 08:01 08/26/24 08:01
08/25/24 08/26/24 08/27/24
06:59 06:59 06:59
Actual Weight 107.229 kg 105.375 kg
08/26/24 06:01
08/26/24 06:01
PT 14.2 Sec (11.4-14.6) 08/22/24 22:27
INR 1.07 08/22/24 22:27
APTT 26.6 Sec (23.4-35.0) 08/22/24 22:27
Magnesium 2.2 mg/dl (1.6-2.3) 08/26/24 06:01
Free T4 1.39 ng/dl (0.78-2.19) 08/22/24 22:27
08/22/24
22:27
Zox-M-Ehrrfhnhdbn Pept 9060
LAB Results
08/23/24 08/23/24
13:14 20:48
Troponin I 0.092 H* 0.087 H*
Physical Exam
Constitutional: No acute distress
Cardiovascular: Rhythm/rate is irregular
Respiratory: Wheeze Absent and Rhonchi Absent
GI: Soft and Non tender
Neuro/Psych: Alert
Other: Other (Some chronic skin changes in lower extremities patient with bilateral edema. Note patient reported to have component of chronic edema/lymphedema)
Data Reviewed
-
Date of Service: August 26, 2024
Medical Decision Making: Reviewed Test Results
Echo: Report Reviewed by me
Medical Tests (PFT, Pathology etc): Report Reviewed by me
Labs: Labs Reviewed by me
[2024-08-26] MEDS: ELIQUIS 5 MG PO (10:04)
[2024-08-26] MEDS: LASIX 40 MG IV (10:06)
[2024-08-26] MEDS: FLUSH (NSS) 2 FLUSH IV (10:07)
--- NOTE | 2024-08-26 11:10 | W.PN.HOSP.TC ---
Today's Communication/Plan
-
Patient signing out AMA - recommended to stay and continue IV diuretics
Meds/labs/instructions/fu reviewed and meds sent to pharmacy.
Assessment / Plan
Assessment / Plan
Echo: Mildly dilated LV with severely reduced systolic function.
LVEF is 25-30% by visual estimation. Global diffuse hypokinesis.
Normal-appearing RV size with reduced systolic function.
No significant valvular disease.
Estimated pulmonary artery pressure of 29 mmHg assuming a right atrial pressure
of 3 mmHg.
No prior study available for comparison.
Assessment:
Acute on chronic HFrEF exacerbation
- BNP 9000
- CXR: Borderline cardiomegaly and pulmonary vascularity at least top normal.
- continue IV Lasix - requires intensive monitoring of I/Os, weights, lytes.
- patient wants to leave despite advice to continue in hospital treatment. AMA form signed.
- GDMT: ARB, BB. Fargixa
- salt and fluid restrictions
- CHF education
- Recent echo reportedly showed EF 30-35% with global hypokinesis. Recent cath with mild nonobstructive CAD. Records pending from OP Cardiology Dr. Coles
- repeat Echo as above
- CBC cards follow up outpatient.
- labs weekly x 2 weeks
- apply compression therapy - patient has own
Atrial fibrillation with RVR
- s/p Cardizem
- continue Coreg
- CHADSVASC 4 (female,age,CHF, HTN- BP's elevated here). Denies any bleeding history. Eliquis
Essential HTN
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
mild nonobstructive CAD
- No chest pain
- trop peaked .130
- continue Statin
Childhood asthma
Obesity
Gout
- continue colchicine, febuxostat
Chronic lymphedema
DVT ppx: Eliquis
Code: Full
More than 30 minutes spent in discharge including
Final examination of the patient
Summarizing hospital stay
Instructions for continuing care to all relevant caregivers
Preparation of discharge records, prescriptions, and referral forms
Total time spent (in minutes): 51
Anticipated Discharge: Today
Subjective/Interval History
-
Date of Service: August 26, 2024
resting comfortably, no CP or SOB
Objective Data
-
Labs:
Laboratory Results
08/26/24
06:01
WBC 6.3
Hgb 12.8
Hct 38.3
Plt Count 225
Sodium 139
Potassium 4.0
Chloride 101
Carbon Dioxide 31 H
BUN 20 H
Creatinine 1.0
Glucose 121 H
Calcium 8.8
Vital Signs:
Vital Signs
Temp Pulse Resp BP Pulse Ox
98.2 F 71 18 134/80 94
08/26/24 08:01 08/26/24 10:06 08/26/24 08:01 08/26/24 10:06 08/26/24 08:01
I&O
08/25/24 08/26/24 08/27/24
06:59 06:59 06:59
Intake Total 1200 / 1200 480 / 480
Balance 1200 / 1200 480 / 480
Physical Exam
-
General: No Apparent Distress
HEENT: Normocephalic and Atraumatic
Respiratory: Negative Wheezes
Cardiac: Regular Rhythm and S1/S2
GI: Soft
Musculoskeletal: Edema, Right Lower Extrem and Edema, Left Lower Extrem
Neuro: AO x 3
Psych: Calm
Data Reviewed
-
Total Time Spent with Patient (in minutes): 51
Labs: Labs Reviewed by me
--- NOTE | 2024-08-26 11:35 | W.DS.TRANS ---
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
-
Discharge Instructions:
Discharge Diagnosis/Procedures acute CHF, cardiomyopathy, A. Fib
Diet 2 Gram Sodium,Restrict fluids to 48 oz
Activity As tolerated
Blood Work BMP in 1 week and 2 week
Instructions:
Stand-Alone Forms:
Changes to Home Medications: No
Discharge Medications:
DC Medications w/original date entered in [employer]
colchicine 0.6 mg tablet 0.6 mg PO DAILY 08/22/24
febuxostat 40 mg tablet 40 mg PO DAILY 08/22/24
apixaban 5 mg tablet (Eliquis) 5 mg PO BID #60 tabs 08/26/24
carvedilol 3.125 mg tablet 3.125 mg PO BID #60 tabs 08/26/24
dapagliflozin propanediol 10 mg tablet 10 mg PO DAILY #30 tabs 08/26/24
furosemide 40 mg tablet (Lasix) 40 mg PO DAILY #30 tabs 08/26/24
valsartan 80 mg tablet 80 mg PO DAILY@1200 #30 tabs 08/26/24
Home Medication Changes
Pending Results: No
Total time spent discharging patient (in min): 41
[2024-08-26] MEDS: COREG 3.125 MG PO (12:05)
--- NOTE | 2024-08-26 12:16 | CM ---
Chart reviewed and patient is for discharge to home today, cost of Eliquis reviewed with pharmacy again and cost is $529.24, cost of Farxiga is $98 per month, 30 day free coupons provided to patient, plan is to home today IMM completed. No needs art
discharge.
Plan; Home today no needs.
[2024-08-26 12:44] VITALS: BP 114/77
--- NOTE | 2024-08-26 14:30 | PTCARENOTE ---
Pt planning on leaving AMA, paperwork signed with Dr. Rubio. Pt wanted to take Diovan prior to leaving. BP 97/60 prior to administrating Diovan, parameters to hold if SBP < 100. Pt asymptomatic, held Diovan. Pt's expressing that he doesn't
want pt to leave with these new medications and her BP being a little low. Pt made RN aware that she is going to stay tonight. Updated Dr. Rubio.
--- NOTE | 2024-08-26 15:09 | W.PN.UPDATE ---
Update Note
Progress Note Update
patient with borderline low BP of 109-59. concerned over BP and recent introduction of CHF meds. She will rescrind AMA discharge and stay tonight. Hold PM IV Lasix and resume as PO Lasix tomorrow. If BP stable tomorrow, patient can discharge
tomorrow.
[2024-08-26 15:26] VITALS: BP 109/59
[2024-08-26] MEDS: ULORIC 40 MG PO (15:29)
[2024-08-26] MEDS: COLCHICINE 0.6 MG PO (15:29)
--- NOTE | 2024-08-26 15:30 | PTCARENOTE ---
Pt states that her last BM was Friday (08/22). Pt does not feel constipated and says she probably will not go while in the hospital, offered to get a stool softener order for her but she refused.
[2024-08-26] MEDS: FARXIGA 10 MG PO (18:04)
[2024-08-26 20:49] VITALS: BP 102/62
--- NOTE | 2024-08-26 21:00 | PTCARENOTE ---
Pt declined coreg and eliquis tonight. With BP being soft at 102/62 on the cusp of the parameters, I agreed with holding coreg. Provided education on eliquis, including risk for heart attack and stroke due to AFib. Pt still declined eliquis. Pt
expressed frustration with having 'so many medications thrown at me at once without explanation' and would like to have a more detailed conversation with her PCP outpatient.
[2024-08-26] MEDS: COREG PO (21:06)
[2024-08-26] MEDS: ELIQUIS PO (21:06)
[2024-08-26 23:37] VITALS: BP 117/71
[2024-08-27 05:38] VITALS: BMI 40.6
[2024-08-27 07:50] VITALS: BP 140/92
[2024-08-27] MEDS: LASIX 40 MG PO (08:15)
--- NOTE | 2024-08-27 08:19 | W.PN.CD ---
Today's Communication / Plan
-
Need CM to go over pricing of DOACs and SGLT2i to see what is affordable
Cont coreg and valsartan
Furosemide to go to 40 mg daily
She is adamant on going home; we will arrange follow up.
She will need a BMP in a week
Impression / Plan
-
Acute on chronic HFrEF, LVEF here by echo 25-30%, goal weight not determined
- I reviewed GDMT: loop diuretic, BB, MRA, SGLT2-I, RAAS-I
- Admit weight continues to come down adamant on leaving today
- GDMT: Coreg, unable to afford Farxiga/Jardiance, Valsartan, add spironolactone later
- Patient still with
Nonischemic dilated cardiomyopathy. Continue to optimize GDMT
NSVT, multiple episodes, longest 16 beats, monomorphic. Ventricular triplets over the last 24 hours no longer runs
- Med rx for HFrEF
- If EF stays low => will offer primary prevention ICD. Reassess meant of EF in 3 months
Afib, persistent, duration unknown,
- Heart rate approximately 100 may benefit from some additional rate control provided BP will allow.
- I reviewed the importance of OAT for stroke prevention
- Given HF will pursue rhythm control IF SHE demonstrates adherence to therapy and followup
- According to case management DOACs should be affordable but this AM she told me it was $500 for Eliquis, in CM note it was $12.15
HTN suspected, not on meds for HTN
Non-obstructive CAD, max lesion at cath last week was a 20-30% D2
Chronic lymphedema (many years)=> but she has much more edema than is baseline
Med cost: Low cost per case management
Medication intolerance => I encourage her to stick with meds
Subjective: Feeling improved said she is going home
Physical Exam
Vital Signs/Labs
Vital Signs
Temp Pulse Resp BP Pulse Ox
98.2 F 76 18 140/92 100
08/26/24 23:37 08/27/24 08:15 08/26/24 23:37 08/27/24 08:15 08/27/24 08:08
08/26/24 08/27/24 08/28/24
06:59 06:59 06:59
Actual Weight 232 lb 5 oz 229 lb 3 oz
08/26/24 06:01
08/26/24 06:01
PT 14.2 Sec (11.4-14.6) 08/22/24 22:27
INR 1.07 08/22/24 22:27
APTT 26.6 Sec (23.4-35.0) 08/22/24 22:27
Magnesium 2.2 mg/dl (1.6-2.3) 08/26/24 06:01
Free T4 1.39 ng/dl (0.78-2.19) 08/22/24 22:27
08/22/24
22:27
Pbl-N-Reirbzuveby Pept 9060
Physical Exam
Constitutional: No acute distress and Comfortable
EENT: Anicteric
Cardiovascular: Rhythm/rate is irregular and Pedal edema present
Respiratory: Respiratory effort normal
GI: Soft
Neuro/Psych: Alert and Oriented
Data Reviewed
-
Date of Service: August 27, 2024
EKG: Tracing Personally Visualized and interpreted (af)
Echo: Tracing Personally Visualized and interpreted and Report Reviewed by me
Labs: Labs Reviewed by me
[2024-08-27] MEDS: COLCHICINE PO (08:25)
[2024-08-27] MEDS: FARXIGA PO (08:25)
[2024-08-27] MEDS: ELIQUIS PO (08:25)
[2024-08-27] MEDS: COREG PO (08:25)
[2024-08-27] MEDS: ULORIC PO (08:25)
--- NOTE | 2024-08-27 08:25 | PTCARENOTE ---
Pt refusing most of am meds; took only PO Lasix. Dr. Mahoney notified.
--- NOTE | 2024-08-27 11:58 | W.PN.HOSP.TC ---
Today's Communication/Plan
-
Discharge home today
Assessment / Plan
Assessment / Plan
Impression:
Patient is 74 years old with a history of dilated cardiomyopathy, bilateral edema, gout, obesity, who was admitted with shortness of breath, found to have congestive heart failure exacerbation.
She has had cardiac catheterization 5 days ago to evaluate her chronic lower extremity edema and to evaluate for 'skipped heart beat'. She did not have any CAD on catheterization but afterwards he developed increasing shortness of breath, 20 pound
weight gain and increased swelling in the legs bilaterally. Has chronic cough that is unchanged. No fevers or chills. No chest pain. She went to urgent care was told to come to emergency room. She was noted to be in A-fib with RVR there.
Echo: Mildly dilated LV with severely reduced systolic function.
LVEF is 25-30% by visual estimation. Global diffuse hypokinesis.
Normal-appearing RV size with reduced systolic function.
No significant valvular disease.
Estimated pulmonary artery pressure of 29 mmHg assuming a right atrial pressure
of 3 mmHg.
No prior study available for comparison.
Cardiology recommending Eliquis on dischargeAraceli, continue carvedilol and valsartan.
Lasix 40 mg daily.
Repeat BMP after 1 week
Assessment:
Acute on chronic HFrEF exacerbation
- BNP 9000
- CXR: Borderline cardiomegaly and pulmonary vascularity at least top normal.
- continue IV Lasix - requires intensive monitoring of I/Os, weights, lytes.
- patient wants to leave despite advice to continue in hospital treatment. AMA form signed.
- GDMT: ARB, BB. Fargixa
- salt and fluid restrictions
- CHF education
- Recent echo reportedly showed EF 30-35% with global hypokinesis. Recent cath with mild nonobstructive CAD. Records pending from OP Cardiology Dr. Coles
- repeat Echo as above
- CBC cards follow up outpatient.
- labs weekly x 2 weeks
- apply compression therapy - patient has own
Atrial fibrillation with RVR
- s/p Cardizem
- continue Coreg
- CHADSVASC 4 (female,age,CHF, HTN- BP's elevated here). Denies any bleeding history. Eliquis
Essential HTN
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
mild nonobstructive CAD
- No chest pain
- trop peaked .130
- continue Statin
Childhood asthma
Obesity
Gout
- continue colchicine, febuxostat
Chronic lymphedema
DVT ppx: Eliquis
Code: Full
Total time spent on today's encounter was 55 minutes which included time spent in counseling the patient/family regarding diagnosis and treatment plan as listed above, goals of care, and symptom management. Case was discussed with nursing staff,
specialists, and care coordinators/case management. All labs and imaging personally reviewed by me. Remainder the time spent in detailed review of previous records, lab data, imaging, and other medical provider documentation.
Anticipated Discharge: Today
Subjective/Interval History
-
Date of Service: August 27, 2024
Patient seen and examined at bedside, denies any chest pain or shortness of breath, no abdominal pain, no nausea, no vomiting, no diarrhea or constipation.
Still with bilateral lower extremity edema, patient wants to go home.
Objective Data
-
Vital Signs:
Vital Signs
Temp Pulse Resp BP Pulse Ox
97.5 F 76 16 140/92 100
08/27/24 07:50 08/27/24 08:15 08/27/24 07:50 08/27/24 08:15 08/27/24 08:08
I&O
08/26/24 08/27/24 08/28/24
06:59 06:59 06:59
Intake Total 480 / 480 900 / 900
Balance 480 / 480 900 / 900
Physical Exam
-
General: Well Developed, Well Nourished, No Apparent Distress and Comfortable
HEENT: Normocephalic, Atraumatic, Moist Mucous Membranes, No Ptosis, PERRLA and Nose Appears Normal
Respiratory: Rales, Rhonchi and Non Labored Respirations
Cardiac: Regular Rhythm and S1/S2
Breast: Deferred by me
GI: Soft, Nontender, Nondistended and Normal Bowel Sounds
Genito-urinary: No Costovertebral Tender
Musculoskeletal: Edema, Right Lower Extrem and Edema, Left Lower Extrem
Skin: Warm
Neuro: Awake, Alert, Oriented, AO x 3 and No Motor Deficits
Psych: Calm
Data Reviewed
-
Diagnostic Radiology: Image personally visualized and interpreted and Report Reviewed by me
CT Scan: Image personally visualized and interpreted and Report Reviewed by me
Ultrasound: Image personally visualized and interpreted and Report Reviewed by me
MRI: Image personally visualized and interpreted and Report Reviewed by me
Medical Tests (Nuc Med, Echo etc): Image personally visualized and interpreted and Report Reviewed by me
Labs: Labs Reviewed by me
Old Records: Reviewed
--- NOTE | 2024-08-27 12:12 | W.DCSUMMARY ---
Discharge Summary
Discharge Data
Date of Admission: 08/22/24
Date of Discharge: 08/27/24
-
Pending Results: No
Hospital Course
Hospital course
Patient is 74 years old with a history of dilated cardiomyopathy, bilateral edema, gout, obesity, who was admitted with shortness of breath, found to have congestive heart failure exacerbation.
She has had cardiac catheterization 5 days ago to evaluate her chronic lower extremity edema and to evaluate for 'skipped heart beat'. She did not have any CAD on catheterization but afterwards he developed increasing shortness of breath, 20 pound
weight gain and increased swelling in the legs bilaterally. Has chronic cough that is unchanged. No fevers or chills. No chest pain. She went to urgent care was told to come to emergency room. She was noted to be in A-fib with RVR there.
Echo: Mildly dilated LV with severely reduced systolic function.
LVEF is 25-30% by visual estimation. Global diffuse hypokinesis.
Normal-appearing RV size with reduced systolic function.
No significant valvular disease.
Estimated pulmonary artery pressure of 29 mmHg assuming a right atrial pressure
of 3 mmHg.
No prior study available for comparison.
Cardiology recommending Eliquis on discharge, Araceli, continue carvedilol and valsartan.
Lasix 40 mg daily.
Repeat BMP after 1 week
During hospitalization patient was treated from the following
Acute on chronic HFrEF exacerbation
- BNP 9000
- CXR: Borderline cardiomegaly and pulmonary vascularity at least top normal.
- continue IV Lasix - requires intensive monitoring of I/Os, weights, lytes.
- patient wants to leave despite advice to continue in hospital treatment. AMA form signed.
- GDMT: ARB, BB. Fargixa
- salt and fluid restrictions
- CHF education
- Recent echo reportedly showed EF 30-35% with global hypokinesis. Recent cath with mild nonobstructive CAD. Records pending from OP Cardiology Dr. Coles
- repeat Echo as above
- CBC cards follow up outpatient.
- labs weekly x 2 weeks
- apply compression therapy - patient has own
Atrial fibrillation with RVR
- s/p Cardizem
- continue Coreg
- CHADSVASC 4 (female,age,CHF, HTN- BP's elevated here). Denies any bleeding history. Eliquis
Essential HTN
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
mild nonobstructive CAD
- No chest pain
- trop peaked .130
- continue Statin
Childhood asthma
Obesity
Gout
- continue colchicine, febuxostat
Chronic lymphedema
DVT ppx: Eliquis
Code: Full
Total time spent on today's encounter was 40 minutes which included time spent in counseling the patient/family regarding diagnosis and treatment plan as listed above, goals of care, and symptom management. Case was discussed with nursing staff,
specialists, and care coordinators/case management. All labs and imaging personally reviewed by me. Remainder the time spent in detailed review of previous records, lab data, imaging, and other medical provider documentation.
Anticipated Discharge: Today
Discharge Plan
-
Patient Disposition: Home (Routine Discharge)
Discharge Diagnosis/Procedures: acute CHF, cardiomyopathy, A. Fib
Condition: Good
Diet: 2 Gram Sodium and Restrict fluids to 48 oz
Activity: As tolerated
Blood Work: BMP in 1 week and 2 week
Referrals:
Antonio Manning MD [Active, Cardiology] - in one to two weeks
Gonzales Romo MD [Family Provider, Family Practice] - in one week
Prescriptions:
New
valsartan 80 mg Tablet
80 mg PO DAILY@1200 Qty: 30 0RF
carvedilol 3.125 mg Tablet
3.125 mg PO BID Qty: 60 0RF
Eliquis 5 mg Tablet
5 mg PO BID Qty: 60 0RF
dapagliflozin propanediol 10 mg Tablet
10 mg PO DAILY Qty: 30 0RF
furosemide [Lasix] 40 mg tablet
40 mg PO DAILY Qty: 30 0RF
(DME) Basic Metabolic Panel
See Rx Instructions .Route .MEDSUPPLY Qty: 1 0RF
Rx Instructions:
to be done after one week and 2 weeks.
Diagnosis : CHF
Continued
colchicine 0.6 mg Tablet
0.6 mg PO DAILY
febuxostat 40 mg Tablet
40 mg PO DAILY
Discharge Orders:
Discharge Patient (As Directed); Ordered 08/27/24
Ordered By: Darya Mahoney
Discharge Date and Time
Print Language: ICELANDIC
[2024-08-27 12:42] VITALS: BP 130/71
--- NOTE | 2024-08-27 12:55 | CM ---
MD entered order for discharge.
Called pharmacy again for med pricing Cost of Eliquis with [facility] pharmacy again cost is $529.24, cost of Farxiga is $98 per month. notified.
Spoke with pt in room . She said she can not afford these meds.
Pt given coupon for Eliquis for one month free.
IMM reviewed signed on chart . She agrees with dc.
Her Turner will drive her home.
Offered VN she declined need.
PLAN : Home no needs
== END 2024-08-27 14:04 | disposition home or self-care (01) | DRG 291 ==
LOC: 4 EAST ACU 23:34
PROVIDERS: Internal Medicine; Student in an Organized Health Care Education/Training Program; ADMITTING PHYSICIAN Hospitalist; ATTENDING PHYSICIAN General Practice; CONSULT PHYSICIAN Internal Medicine Cardiovascular Disease; EMERGENCY PHYSICIAN Emergency Medicine; FAMILY PHYSICIAN Family Medicine
DX: I11.0 Hypertensive heart disease with heart failure (principal); I50.23 Acute on chronic systolic (congestive) heart failure; I5A Non-ischemic myocardial injury (non-traumatic); J45.909 Unspecified asthma, uncomplicated; E66.9 Obesity, unspecified; I89.0 Lymphedema, not elsewhere classified; I48.91 Unspecified atrial fibrillation; I25.10 Atherosclerotic heart disease of native coronary artery without angina pectoris; E78.00 Pure hypercholesterolemia, unspecified; Z53.29 Procedure and treatment not carried out because of patient's decision for other reasons; Z88.1 Allergy status to other antibiotic agents; Z79.899 Other long term (current) drug therapy
CPT/HCPCS: 71046; 80048; 80053; 83735; 83880; 84439; 84443; 84484; 85025; 85027; 85610; 85730; 93005; 93306; 96374; 96375; 99285

== ENCOUNTER 2024-09-29 08:15 | Day surgery (SDC) | payer MEDICARE, SELFPAY | END 2024-09-29 11:01 | disposition home or self-care (01) | LOC: CATH 08:15 | PROVIDERS: ATTENDING PHYSICIAN Internal Medicine Cardiovascular Disease; FAMILY PHYSICIAN Family Medicine; REFERRING PHYSICIAN Internal Medicine Cardiovascular Disease | DX: I48.19 Other persistent atrial fibrillation (principal); I08.1 Rheumatic disorders of both mitral and tricuspid valves; I11.0 Hypertensive heart disease with heart failure; I50.22 Chronic systolic (congestive) heart failure; I42.8 Other cardiomyopathies; Z79.01 Long term (current) use of anticoagulants | CPT/HCPCS: 93312; 93320; 93325 ==

== ENCOUNTER 2024-10-27 08:14 | Day surgery (SDC) | payer MEDICARE, SELFPAY | END 2024-10-27 10:34 | disposition home or self-care (01) | LOC: CATH 08:14 | PROVIDERS: ATTENDING PHYSICIAN Internal Medicine Cardiovascular Disease; OTHER PHYSICIAN Internal Medicine Cardiovascular Disease | DX: I48.19 Other persistent atrial fibrillation (principal); I08.1 Rheumatic disorders of both mitral and tricuspid valves; I08.8 Other rheumatic multiple valve diseases; I11.0 Hypertensive heart disease with heart failure; I50.22 Chronic systolic (congestive) heart failure | CPT/HCPCS: 93312; 93320; 93325 ==

== ENCOUNTER 2024-12-14 06:12 | Inpatient (IN) | payer MEDICARE, SELFPAY ==
[2024-11-30 13:26] VITALS: BMI 41.9
[2024-11-30 15:02] LABS: Hematocrit 43.5 % (37.0-47.0); Hemoglobin 14.2 g/dL (12.0-16.0); Mean Corp Hgb Conc. 32.6 g/dL (33.0-37.0); Mean Corpuscular Volume 87.2 fL (81.0-99.0); Nucleated Red Blood Cells % 0 %; Platelet Count 230 10^3/uL (130-400); Red Cell Dist. Width 15.9 % (11.5-14.5)
[2024-11-30 15:03] LABS: INR 1.51; PT 18.4 Sec (11.4-14.6)
[2024-11-30 16:36] LABS: ALT (SGPT) 16 U/L (0-35); AST (SGOT) 16 U/L (14-36); Albumin 4.2 g/dl (3.5-5.0); Alkaline Phosphatase 76 U/L (38-126); Blood Urea Nitrogen 18 mg/dl (7-17); Calcium 9.8 mg/dl (8.4-10.2); Carbon Dioxide 28 mmol/L (22-30); Chloride 103 mmol/L (98-107); Estimated Creatinine Clearance 67 ml/min; Glucose 118 mg/dl (70-99); Potassium 4.9 mmol/L (3.5-5.1); Sodium 139 mmol/L (135-145); Total Protein 6.8 g/dl (6.3-8.2); eGFR > 60.00
[2024-12-14] VITALS (12 sets, daily range): BP systolic 100–139; BP diastolic 62–106
[2024-12-14] MEDS: NSS 500 IV (07:24)
[2024-12-14] MEDS: BENADRYL 50 MG IV (07:26)
[2024-12-14] MEDS: SOLU-CORTEF 200 MG IV (07:27)
--- NOTE | 2024-12-14 10:14 | ITS.CL.ABL ---
[employer] - Ablation
Ablation
Procedure Report:
AFIB ablation / Watchman implantation:
Ms. Welch is a very pleasant 74 yr old woman, a patient of Dr. Manning, with symptomatic persistent AF, with CHADSVascc score of 6 on Pradaxa and hx of JASON clot that has resolved on Pradaxa with h/o recurrent GI bleed is recommended a placement of
Watchman with atrial fibrillation ablation.
Date of the Procedure:
12/14/2024
Indications:
Persistent atrial fibrillation, recurrent bleeding with high CHADSVasc score
Pre-Operative Diagnosis:
Persistent atrial fibrillation, recurrent bleeding with high CHADSVasc score
Post-Operative Diagnosis:
Persistent atrial fibrillation, recurrent bleeding with high CHADSVasc score
Procedure Performed:
Atrial fibrillation ablation with Pulsed-Field approach for pulmonary vein isolation
Posterior wall isolation
Left atrial appendage occlusion with Watchman implantation (31 mm Watchman FLX Pro left atrial appendage closure device)
Performing Physician:
Ablation and TSSP: Josh Luis MD
Implant: Demetrio Baumann MD PHD
MAURI: Denice Hamilton DO.
Assistants:
EP staff
Anesthesia:
See anesthesia records
Detailed Description of the Procedure:
Written informed consent was obtained from the patient after a full explanation of the risks and benefits of the procedure including the risks of sedation and anesthesia.
The patient was brought to the electrophysiology laboratory in stable condition in fasting state. Continuous electrocardiographic and hemodynamic monitoring was initiated.
The initial rhythm was atrial fibrillation.
The procedure site was meticulously prepared with surgical scrub and allowed to dry with no pooling. Sterile draping was applied to cover the procedure site. The image intensifier was draped with sterile bag and positioned over the patient. After
infusion of local anesthetic, vascular access was obtained under ultrasound guidance and sheaths were placed over guide wire as detailed below.
Sheath and Catheter Placement:
The following catheters / sheaths were placed
Sheaths:
��������� 17Fr steerable sheath (Faradrive�, CELLFOR) in right femoral that later swapped to Watchman delivery sheath
��������� 9Fr in right femoral vein
��������� 7Fr in right femoral vein
Catheters:
��������� SAMIA HD Grid mapping catheter � at locations of RA, LA
��������� Farawave� PFA catheter
��������� ICE catheter �AccuNav - at locations of RA, SVC, and RV.
��������� Watchman catheter
��������� Bard Decapolar catheter.
Heparin bolus given and drip started.
Intracardiac ECHO:
An 8-Norwegian AcuNav intracardiac ECHO (ICE) probe was advanced through the 9-Norwegian sheath in the right femoral vein into the right atrium under fluoroscopic and ICE ultrasound image guidance and a baseline ECHO study was performed. The left atrial
size was normal. There was moderate tricuspid regurgitation. There was severely reduced left ventricular systolic functions with estimated LVEF of <20%. There is trace pericardial effusion. All the four veins were identified and has flow identified.
There was sluggish flow noted in the JASON. There was no JASON clot noted.
During the procedure, ICE was used for monitoring of complications, guidance of trans-septal puncture, monitor the catheter position and tracking ablation lesions. No change in the pericardial space noted throughout the procedure.
Trans-septal Puncture:
Heparin was initiated and infused to maintain appropriate ACT. A pigtail guidewire was advanced through the 8-Norwegian sheath in the right femoral vein into the superior vena cava under fluoroscopic and ICE guidance. The 9-Norwegian sheath was exchanged
for a Faradrive sheath which was advanced into the superior vena cava. A trans-septal RF pigtail via Faradrive connect system was utilized to perform the trans-septal puncture. The apparatus was withdrawn until it was in contact with the fossa
ovalis. The position was adjusted based on fluoroscopy and ultrasound images from ICE. Under fluoroscopic, hemodynamic and ICE ultrasound guidance, left atrium was cannulated by applying RF energy. Once atrial septum was cannulated, the pigtail wire
was advanced through the needle into the left atrium. The guide wire was advanced into the left superior pulmonary vein. Both the sheath and the dilator was advanced into the left atrium. The dilator with the needle was withdrawn. Blood was
aspirated from the Faradrive sheath and arterial blood confirmed. The sheath was flushed. Saline injection noted into the left atrium on ICE. The mapping catheter was advanced in the sheath into the left pulmonary vein. Left atrial pressure was
measured.
3D Electroanatomic Mapping:
Using the HD Grid catheter advanced through sheath into the left atrium, an electroanatomic map (EAM) of the left atrium was created using [employer] mapping system. The map was used for localization of catheter position and tacking of ablation
lesions.
The EAM of the left atrium showed 4 pulmonary veins with all 4 veins electrically connected to the body the LA. It showed scattered extensive scar on the posterior and anterior wall of the LA. The LA was dilated in size.
Following the EAM, preparation were made for ablation.
Ablation:
Ablation # 1: Pulmonary vein Isolation:
Glycopyrrolate 0.2 mg was given prior to the placement of ablation. Using Pricing Engine pulsed wave ablation system, pulmonary vein isolation was achieved. First the ablation catheter was placed in the LSPV and ostial ablation lesions were performed in a
counter clock moctezuma approach all around the PV ostium circumferentially. Then the catheter was placed on the antral location and multiple ablation lesions were placed circumferentially on the antrum of the vein.
In the similar fashion, the LIPV were isolated.
Then the catheter was moved to right sided veins. The ostial and antral ablations were placed as noted above.
Ablation #2: Posterior wall isolation:
Using the pulsed field ablation catheter, the catheter was placed between left superior pulmonary vein and right severe pulmonary vein with series of overlapping ablation lesions placed.
Using the pulsed field ablation catheter, the catheter was placed on the posterior wall and moved around the posterior wall to have adequate contact and ablations were placed isolating the posterior wall.
EPS and Confirmation of the PVI and bidirectional block:
Following achievement of entrance block at the pulmonary veins, pacing from the HD catheter in each of the four veins at 10 milliamps for 2 milliseconds showed entrance and exit block. All PVI were rechecked at the end of the case and remained
isolated. Entrance and exit block were demonstrated in all veins.
Post ablation Electroanatomic mapping:
Once ablation was completed, the EAM of the LA was done again in sinus rhythm with excellent demarcation of LA myocardium and isolated antral tissue. There was no significant scarring noted in the LA.
The JASON had healthy signals and was not isolated.
Watchman implantation:
Using the trans-septal RF pigtail, the Faradrive sheath was swapped with Watchman delivery sheath over the RF pigtail. A curved pig tail was advanced over the guide wire into the left atrium and the wire was removed.
Left atrial appendage atriography:
The pigtail was advanced into the JASON and was confirmed on fluoroscopy and MAURI. The contrast was injected and the JASON shape was recorded in SCHILLING /Caudal view (25/25 degrees). The size of the JASON was again checked and confirmed reviewing the MAURI and
the fluoroscopy along with previously obtained CT scan images.
Watchman Deployment:
The Watchman delivery sheath was advanced into the JASON over the pigtail till the right marker was at the location of the orifice line marked on the screen. The pigtail was removed and the Watchman delivery system was advanced through the sheath into
the JASON till it was aligned with the outer sheath marker inside the JASON. The watchman sheath was clicked with the outer sheath. Once acceptable location achieved, the outer sheath was pulled back keeping the device steady at the JASON location till a
ball of the device was formed under fluoroscopic guidance. The whole system was advanced further into the JASON till adequate depth is achieved into the JASON. The JASON occluder was deployed and expanded adequately anchoring to the JASON. The device was
kept anchored with stable pressure to that location for 10 seconds.
The MAURI image confirmed adequate expansion. The tug test was done that showed the device is anchored well and is not able to come out. The compression was 20%, 22% and 23% on the three sides. There was no significant leak noted on the Doppler via
MAURI.�
The device was deployed by unscrewing the Watchman device and releasing from the connecting wire. The wire was pulled back into the sheath and the sheath was pulled out of the LA.
Implanted device:
WATCHMAN FLX Pro � 31mm
Procedure End
MAURI study was done again that showed no epicardial accumulation that was unchanged from earlier. A repeated images showed no change in the pericardial space. No complications noted.
Following the completion of the deployment, catheters were removed. Protamine 40 mg was given at the end of the procedure and ACT was checked repeatedly. The sheath was removed and hemostasis achieved with Figure of 8 and manual compression after
acceptable ACT is achieved.
Left atrial Pressure:
Mean LA pressure was 7mmHg
Estimated Blood loss:
<10 cc
Specimens Removed:
None.
Implants / Devices:
None
Urine output:
None
Packs / Drains/ Tubes:
None
Instrument / Sponge Count Correct:
Yes
Complications of the Procedure:
None
Condition of Patient at Time of Transfer:
Hemodynamically stable with no neurological or vascular compromise.
Summary:
Successful atrial fibrillation ablation with Pulsed Field approach for pulmonary vein isolation and posterior wall isolation.
Successful implantation of the left atrial occlusion device (WATCHMAN FLX Pro� 31mm)
Post procedure Plan for anticoagulation:
Continue Eliquis for 3 months.
Based on 3 months MAURI, will plan to switch Pradaxa to ASA 81 mg indefinitely.
Figures from the Procedure:
Figure 1: The electroanatomic mapping (EAM) of the left atrium with bipolar voltage (purple indicates normal electrical activity with fuentes as no myocardial muscle electric activity indicating a line of block or scar.
--- NOTE | 2024-12-14 10:23 | WATCHMAN.MD ---
Watchman Implant
-
AFIB ablation / Watchman implantation:
Ms. Welch is a very pleasant 74 yr old woman, a patient of Dr. Manning, with symptomatic persistent AF, with CHADSVascc score of 6 on Pradaxa and hx of JASON clot that has resolved on Pradaxa with h/o recurrent GI bleed is recommended a placement of
Watchman with atrial fibrillation ablation.
Date of the Procedure:
12/14/2024
Indications:
Persistent atrial fibrillation, recurrent bleeding with high CHADSVasc score
Pre-Operative Diagnosis:
Persistent atrial fibrillation, recurrent bleeding with high CHADSVasc score
Post-Operative Diagnosis:
Persistent atrial fibrillation, recurrent bleeding with high CHADSVasc score
Procedure Performed:
Atrial fibrillation ablation with Pulsed-Field approach for pulmonary vein isolation
Posterior wall isolation
Left atrial appendage occlusion with Watchman implantation (31 mm Watchman FLX Pro left atrial appendage closure device)
Performing Physician:
Ablation and TSSP: Josh Luis MD
Implant: Demetrio Baumann MD PHD
MAURI: Denice Hamilton DO.
Assistants:
EP staff
Anesthesia:
See anesthesia records
Detailed Description of the Procedure:
Written informed consent was obtained from the patient after a full explanation of the risks and benefits of the procedure including the risks of sedation and anesthesia.
The patient was brought to the electrophysiology laboratory in stable condition in fasting state. Continuous electrocardiographic and hemodynamic monitoring was initiated.
The initial rhythm was atrial fibrillation.
The procedure site was meticulously prepared with surgical scrub and allowed to dry with no pooling. Sterile draping was applied to cover the procedure site. The image intensifier was draped with sterile bag and positioned over the patient. After
infusion of local anesthetic, vascular access was obtained under ultrasound guidance and sheaths were placed over guide wire as detailed below.
Sheath and Catheter Placement:
The following catheters / sheaths were placed
Sheaths:
��������� 17Fr steerable sheath (Akimbo�, Kormeli) in right femoral that later swapped to Watchman delivery sheath
��������� 9Fr in right femoral vein
��������� 7Fr in right femoral vein
Catheters:
��������� SAMIA HD Grid mapping catheter � at locations of RA, LA
��������� Farawave� PFA catheter
��������� ICE catheter �AccuNav - at locations of RA, SVC, and RV.
��������� Watchman catheter
��������� Bard Decapolar catheter.
Heparin bolus given and drip started.
Intracardiac ECHO:
An 8-Malay AcuNav intracardiac ECHO (ICE) probe was advanced through the 9-Malay sheath in the right femoral vein into the right atrium under fluoroscopic and ICE ultrasound image guidance and a baseline ECHO study was performed. The left atrial
size was normal. There was moderate tricuspid regurgitation. There was severely reduced left ventricular systolic functions with estimated LVEF of <20%. There is trace pericardial effusion. All the four veins were identified and has flow identified.
There was sluggish flow noted in the JASON. There was no JASON clot noted.
During the procedure, ICE was used for monitoring of complications, guidance of trans-septal puncture, monitor the catheter position and tracking ablation lesions. No change in the pericardial space noted throughout the procedure.
Trans-septal Puncture:
Heparin was initiated and infused to maintain appropriate ACT. A pigtail guidewire was advanced through the 8-Malay sheath in the right femoral vein into the superior vena cava under fluoroscopic and ICE guidance. The 9-Malay sheath was exchanged
for a Faradrive sheath which was advanced into the superior vena cava. A trans-septal RF pigtail via Faradrive connect system was utilized to perform the trans-septal puncture. The apparatus was withdrawn until it was in contact with the fossa
ovalis. The position was adjusted based on fluoroscopy and ultrasound images from ICE. Under fluoroscopic, hemodynamic and ICE ultrasound guidance, left atrium was cannulated by applying RF energy. Once atrial septum was cannulated, the pigtail wire
was advanced through the needle into the left atrium. The guide wire was advanced into the left superior pulmonary vein. Both the sheath and the dilator was advanced into the left atrium. The dilator with the needle was withdrawn. Blood was
aspirated from the Faradrive sheath and arterial blood confirmed. The sheath was flushed. Saline injection noted into the left atrium on ICE. The mapping catheter was advanced in the sheath into the left pulmonary vein. Left atrial pressure was
measured.
3D Electroanatomic Mapping:
Using the HD Grid catheter advanced through sheath into the left atrium, an electroanatomic map (EAM) of the left atrium was created using [employer] mapping system. The map was used for localization of catheter position and tacking of ablation
lesions.
The EAM of the left atrium showed 4 pulmonary veins with all 4 veins electrically connected to the body the LA. It showed scattered extensive scar on the posterior and anterior wall of the LA. The LA was dilated in size.
Following the EAM, preparation were made for ablation.
Ablation:
Ablation # 1: Pulmonary vein Isolation:
Glycopyrrolate 0.2 mg was given prior to the placement of ablation. Using [employer] pulsed wave ablation system, pulmonary vein isolation was achieved. First the ablation catheter was placed in the LSPV and ostial ablation lesions were performed in a
counter clock moctezuma approach all around the PV ostium circumferentially. Then the catheter was placed on the antral location and multiple ablation lesions were placed circumferentially on the antrum of the vein.
In the similar fashion, the LIPV were isolated.
Then the catheter was moved to right sided veins. The ostial and antral ablations were placed as noted above.
Ablation #2: Posterior wall isolation:
Using the pulsed field ablation catheter, the catheter was placed between left superior pulmonary vein and right severe pulmonary vein with series of overlapping ablation lesions placed.
Using the pulsed field ablation catheter, the catheter was placed on the posterior wall and moved around the posterior wall to have adequate contact and ablations were placed isolating the posterior wall.
EPS and Confirmation of the PVI and bidirectional block:
Following achievement of entrance block at the pulmonary veins, pacing from the HD catheter in each of the four veins at 10 milliamps for 2 milliseconds showed entrance and exit block. All PVI were rechecked at the end of the case and remained
isolated. Entrance and exit block were demonstrated in all veins.
Post ablation Electroanatomic mapping:
Once ablation was completed, the EAM of the LA was done again in sinus rhythm with excellent demarcation of LA myocardium and isolated antral tissue. There was no significant scarring noted in the LA.
The JASON had healthy signals and was not isolated.
Watchman implantation:
Using the trans-septal RF pigtail, the Faradrive sheath was swapped with Watchman delivery sheath over the RF pigtail. A curved pig tail was advanced over the guide wire into the left atrium and the wire was removed.
Left atrial appendage atriography:
The pigtail was advanced into the JASON and was confirmed on fluoroscopy and MAURI. The contrast was injected and the JASON shape was recorded in SCHILLING /Caudal view (25/25 degrees). The size of the JASON was again checked and confirmed reviewing the MAURI and
the fluoroscopy along with previously obtained CT scan images.
Watchman Deployment:
The Watchman delivery sheath was advanced into the JASON over the pigtail till the right marker was at the location of the orifice line marked on the screen. The pigtail was removed and the Watchman delivery system was advanced through the sheath into
the JASON till it was aligned with the outer sheath marker inside the JASON. The watchman sheath was clicked with the outer sheath. Once acceptable location achieved, the outer sheath was pulled back keeping the device steady at the JASON location till a
ball of the device was formed under fluoroscopic guidance. The whole system was advanced further into the JASON till adequate depth is achieved into the JASON. The JASON occluder was deployed and expanded adequately anchoring to the JASON. The device was
kept anchored with stable pressure to that location for 10 seconds.
The MAURI image confirmed adequate expansion. The tug test was done that showed the device is anchored well and is not able to come out. The compression was 20%, 22% and 23% on the three sides. There was no significant leak noted on the Doppler via
MAURI.�
The device was deployed by unscrewing the Watchman device and releasing from the connecting wire. The wire was pulled back into the sheath and the sheath was pulled out of the LA.
Implanted device:
WATCHMAN FLX Pro � 31mm
Procedure End
MAURI study was done again that showed no epicardial accumulation that was unchanged from earlier. A repeated images showed no change in the pericardial space. No complications noted.
Following the completion of the deployment, catheters were removed. Protamine 40 mg was given at the end of the procedure and ACT was checked repeatedly. The sheath was removed and hemostasis achieved with Figure of 8 and manual compression after
acceptable ACT is achieved.
Left atrial Pressure:
Mean LA pressure was 7mmHg
Estimated Blood loss:
<10 cc
Specimens Removed:
None.
Implants / Devices:
None
Urine output:
None
Packs / Drains/ Tubes:
None
Instrument / Sponge Count Correct:
Yes
Complications of the Procedure:
None
Condition of Patient at Time of Transfer:
Hemodynamically stable with no neurological or vascular compromise.
Summary:
Successful atrial fibrillation ablation with Pulsed Field approach for pulmonary vein isolation and posterior wall isolation.
Successful implantation of the left atrial occlusion device (WATCHMAN FLX Pro� 31mm)
Post procedure Plan for anticoagulation:
Continue Eliquis for 3 months.
Based on 3 months MAURI, will plan to switch Pradaxa to ASA 81 mg indefinitely.
[2024-12-14 11:00] LABS: ACT-LR - POC > 397 Seconds (116-155)
[2024-12-14 11:00] LABS: ACT-LR - POC > 397 Seconds (116-155)
[2024-12-14 11:00] LABS: ACT-LR - POC > 397 Seconds (116-155)
[2024-12-14] MEDS: LASIX 40 MG IV (12:15)
[2024-12-14] MEDS: ANESTHETIC LOZENGE 1 LOZENGE PO (13:18)
[2024-12-14] MEDS: CARDIZEM CD 120 MG PO (13:42)
--- NOTE | 2024-12-14 14:31 | W.DS.TRANS ---
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
-
Discharge Instructions:
Discharge Diagnosis/Procedures AFib, s/p ablation + watchman device implant
Diet Low Cholesterol
Driving Restrictions No driving for 24 hours
Blood Work BMP in 1 week- results to Dr. Manning
Others Tests Follow up MAURI has been scheduled for you at [place]
[facility] on 02/25/2025. You
will receive instructions from Dr. Luis's
office and a call the day prior with arrival
time.
Instructions:
Stand-Alone Forms: DC Instructions- Cath/EP Lab
Changes to Home Medications: Yes
Discharge Medications:
DC Medications w/original date entered in [employer]
colchicine 0.6 mg tablet 0.6 mg PO 1300 08/22/24
febuxostat 40 mg tablet 40 mg PO 1300 08/22/24
spironolactone 25 mg tablet 12.5 mg PO HS 09/29/24
dabigatran etexilate 150 mg capsule 150 mg PO BID 10/27/24
diltiazem HCl 120 mg capsule,24 hr,extended release 120 mg PO DAILY 10/27/24
Kidney Complete 1 dose PO DAILY 11/26/24
Nux Vomica 1 dose PO DAILYPRN PRN reflux 11/26/24
arnica 1 dose PO DAILYPRN PRN swelling, body healing after any trauma 11/26/24
valsartan 80 mg tablet 40 mg PO HS 11/26/24
furosemide 40 mg tablet (Lasix) 40 mg PO MOWEFR #0 tabs 12/14/24
Home Medication Changes
DOSE ADJUST: furosemide
Pending Results: No
--- NOTE | 2024-12-14 16:56 | ITS.CL.PN ---
Hacksaw Inspector - Procedure Note
Procedure
Procedure Note:
WATCHMAN LEFT ATRIAL APPENDAGE OCCLUSION REPORT
Date of Procedure: 12/14/2024
Referring: Dr. Antonio Manning MD
Indication: Atrial fibrillation with high bleeding risk and high stroke risk
Operators: Demetrio Baumann MD, PhD (interventional cardiology); Dr. Josh Luis MD (electrophysiology); Dr. Denice Hamilton DO (cardiac imaging)
Anesthesia: general anesthesia provided by the anesthesia staff
PROCEDURE: left atrial appendage occlusion with a 31 mm Watchman FLX
HEMODYNAMIC DATA
LA 7 mmHg
PROCEDURE NARRATIVE:
At the conclusion of the ablation procedure (please see separate procedure note), via existing transseptal access, the ablation catheter was exchanged for the Watchman double curve sheath.
A 5F pigtail catheter was advanced through the sheath and placed in the left atrial appendage, and an appendage gram was performed demonstrating anatomy suitable for a 31 mm Watchman FLX device. The device was prepped on the back table, the pigtail
catheter removed, and the device delivered via the sheath to the left atrial appendage by Dr. Samuel Baumann. The device was deployed slowly under continuous fluoroscopic and MAURI visualization. After deployment, MAURI imaging was performed to assess
PASS criteria. The device demonstrated excellent positioning, anchor stability on tug test, appropriate sizing with 20-23% compression, and appropriate seal with no leak at 0, 45, 90, or 135 degrees. Given PASS criteria were met, the device was then
released.
The delivery system retracted back into the sheath and removed from the body. The sheath was retracted into the right atrium with MAURI demonstrating no significant R-L shunt or pericardial effusion. The ICE catheter was removed from the body. The
sheaths were removed and the venotomy closed with [id number] knot. Protamine 40 mg was given. The patient was extubated and tolerated the procedure well.
CONCLUSIONS
1. transseptal puncture with MAURI guidance
2. successful deployment of a 31 mm Watchman FLX device under fluoroscopic and MAURI guidance as part of combined Afib ablation / Watchman procedure
RECOMMENDATIONS:
1. anticoagulation with Eliquis for 3 months
2. repeat MAURI in 3 months
Copy to: Denice Hamilton DO (setter induction heating equipment); Dr. Nicola Romo MD (PCP)
Signed: Demetrio Baumann MD, PhD
== END 2024-12-14 15:15 | disposition home or self-care (01) | DRG 317 ==
LOC: CATH-IN 06:12
PROVIDERS: Internal Medicine Cardiovascular Disease; ADMITTING PHYSICIAN Internal Medicine Cardiovascular Disease
PROC: 02583ZF Destruction of Conduction Mechanism using Irreversible Electroporation, Percutaneous Approach (ICD-10-PCS; 2024-12-14)
PROC: B246ZZ4 Ultrasonography of Right and Left Heart, Transesophageal (ICD-10-PCS; 2024-12-14)
PROC: 02L73DK Occlusion of Left Atrial Appendage with Intraluminal Device, Percutaneous Approach (ICD-10-PCS; 2024-12-14)
DX: I48.19 Other persistent atrial fibrillation (principal); Z00.6 Encounter for examination for normal comparison and control in clinical research program; I50.22 Chronic systolic (congestive) heart failure; Z68.41 Body mass index [BMI] 40.0-44.9, adult; N17.9 Acute kidney failure, unspecified; E66.01 Morbid (severe) obesity due to excess calories; I51.3 Intracardiac thrombosis, not elsewhere classified; I11.0 Hypertensive heart disease with heart failure; I42.8 Other cardiomyopathies; I49.3 Ventricular premature depolarization; I89.0 Lymphedema, not elsewhere classified; J45.990 Exercise induced bronchospasm; K21.9 Gastro-esophageal reflux disease without esophagitis; K44.9 Diaphragmatic hernia without obstruction or gangrene; K57.30 Diverticulosis of large intestine without perforation or abscess without bleeding; M48.061 Spinal stenosis, lumbar region without neurogenic claudication; M19.90 Unspecified osteoarthritis, unspecified site; M10.9 Gout, unspecified; Z79.01 Long term (current) use of anticoagulants; Z91.199 Patient's noncompliance with other medical treatment and regimen due to unspecified reason; Z91.048 Other nonmedicinal substance allergy status; Z98.42 Cataract extraction status, left eye; Z98.41 Cataract extraction status, right eye
CPT/HCPCS: 33340; 36415; 80053; 85025; 85347; 85610; 86850; 86900; 86901; 93005; 93355; 93656; 93657; C1730; C1732; C1733; C1759; C1766; C1769; C1892; C1894; Q9967

== ENCOUNTER → 2024-12-30 10:25 | Outpatient (REF) | payer MEDICARE, SELFPAY | LOC: RCS 10:25 | PROVIDERS: ATTENDING PHYSICIAN Nurse Practitioner | DX: I48.19 Other persistent atrial fibrillation (principal) | CPT/HCPCS: 93225; 93226 ==

== ENCOUNTER 2025-02-01 06:34 | Outpatient (RCR) | payer MEDICARE, SELFPAY | END 2025-02-01 23:59 | disposition home or self-care (01) | LOC: RPT 06:34 | PROVIDERS: ATTENDING PHYSICIAN Internal Medicine Cardiovascular Disease | DX: I89.0 Lymphedema, not elsewhere classified (principal); N39.41 Urge incontinence; Z73.6 Limitation of activities due to disability; M62.81 Muscle weakness (generalized) | CPT/HCPCS: 97163; 97530 ==

== ENCOUNTER → 2025-02-11 10:18 | Outpatient (REF) | payer MEDICARE, SELFPAY ==
--- NOTE | 2025-02-11 11:37 | CARDSERVDEF ---
Echocardiogram with Definity completed after protocol screening completed. Allergies verified.
Patent IV site: _Right antecubital 22 G PC____
IV site flushed with 0.9% NaCl pre and post administration.
Diluted bolus method utilized to enhance visualization of ventricular wesley.
Total volume given: __4__ mL
Patient tolerated all procedures well without complications.
Heplock D/C ed at 1137, site clear, no redness, no edema. Pressure held for few minutes as pt on anticoagulants. No bleeding,2x2 applied and paper tape used as pt has adhesive tape allergy. No change in status.
== END ==
LOC: RCS 10:18
PROVIDERS: ATTENDING PHYSICIAN Internal Medicine Cardiovascular Disease; FAMILY PHYSICIAN Family Medicine
DX: I50.20 Unspecified systolic (congestive) heart failure (principal); R06.02 Shortness of breath
CPT/HCPCS: 93306; Q9957

== ENCOUNTER 2025-02-25 09:41 | Day surgery (SDC) | payer MEDICARE, SELFPAY ==
[2025-02-25 11:05] VITALS: BMI 41.8
== END 2025-02-25 11:39 | disposition home or self-care (01) ==
LOC: CATH 09:41
PROVIDERS: ATTENDING PHYSICIAN Internal Medicine Cardiovascular Disease
DX: Z45.09 Encounter for adjustment and management of other cardiac device (principal); Z95.818 Presence of other cardiac implants and grafts; I08.1 Rheumatic disorders of both mitral and tricuspid valves; I48.19 Other persistent atrial fibrillation; I50.22 Chronic systolic (congestive) heart failure
CPT/HCPCS: 93312; 93320; 93325; 93005

== ENCOUNTER 2025-03-07 09:41 | Outpatient (RCR) | payer MEDICARE, SELFPAY | END 2025-03-07 23:59 | disposition home or self-care (01) | LOC: RPT 09:41 | PROVIDERS: ATTENDING PHYSICIAN Internal Medicine Cardiovascular Disease | DX: I89.0 Lymphedema, not elsewhere classified (principal); N39.41 Urge incontinence; Z73.6 Limitation of activities due to disability; M62.81 Muscle weakness (generalized) | CPT/HCPCS: 97140; 97530 ==